=== PATIENT | female | born 1950 | race African-American/Black ===

== ENCOUNTER 2022-11-24 01:30 | Inpatient (IN) | payer OTHER, MEDICAID ==
[~2022-11-24] VITALS: Ht 160 cm; Wt 70.8 kg
[2022-11-24] MEDS ORDERED: MORPHINE SULFATE INJ 2 MG/ml SYRG IV PRN ×2 (02:15)
[2022-11-24] MEDS ORDERED: VANCOMYCIN PER PHARMACY 0 MG IV SCH (02:15)
[2022-11-24] MEDS ORDERED: hydrALAZINE HCL 10 MG TAB PO PRN (02:15)
[2022-11-24] MEDS ORDERED: NITROGLYCERIN 0.4 MG SL TAB SL PRN (02:15)
[2022-11-24] MEDS ORDERED: ACETAMINOPHEN 325 MG TAB PO PRN (02:15)
[2022-11-24] MEDS ORDERED: ONDANSETRON HCL 4 MG/2 ML VIAL IV PRN (02:15)
[2022-11-24] MEDS ORDERED: VANCOMYCIN 1GM/250ML 250 ML IV ONE (04:00)
[2022-11-24 05:00] VITALS: BP 176/50
[2022-11-24] MEDS: HYDROcodone-ACET 5/325MG TAB PO PRN ×2 (07:07→20:16)
[2022-11-24] MEDS: PIPERACILLIN-TAZOB 3.375GM 100 ML IV SCH ×3 (07:52→22:02)
[2022-11-24 08:00] VITALS: BP 136/63
[2022-11-24 08:36] LABS: Basophils # (auto) 0.1 10 ^3/uL (0-0.2); Basophils % (auto) 0.5 % (0.0-2.0); Eosinophils # (auto) 0.3 10 ^3/uL (0-0.8); Eosinophils % (auto) 2.8 % (0.0-7.0); Hemoglobin 12.5 g/dL (12.2-16.2); Lymphocytes # (auto) 2.7 10 ^3/uL (0.4-5.4); Mean Corpuscular Hemoglobin 28.8 pg (28.0-32.0); Mean Corpuscular Hgb Conc. 32.9 g/dL (32.0-36.0); Mean Corpuscular Volume 87.5 fL (80.0-100.0); Monocytes # (auto) 0.7 10 ^3/uL (0-1.3); Monocytes % (auto) 6.9 % (0.0-12.0); Neutrophils # (auto) 6.5 10 ^3/uL (1.6-8.6); Neutrophils % (auto) 63.8 % (37.0-80.0); Nucleated Red Blood Cells % 0.2 %; Red Blood Cells 4.34 10^6/uL (4.0-5.20); Red Cell Distribution Width 15.1 % (11.8-14.3); White Blood Cell 10.3 10^3/uL (4.4-10.8)
[2022-11-24 09:00] VITALS: BP 136/63
[2022-11-24 09:02] LABS: Albumin 3.1 g/dL (3.4-5.0); Calcium 8.8 mg/dL (8.5-10.1); Potassium 3.7 mmol/L (3.5-5.1)
[2022-11-24 09:05] LABS: BUN/Creatinine Ratio 10.9 (10.0-20.0); Bilirubin, Total 0.5 mg/dL (0.2-1.0); Total Protein 7.3 g/dL (6.4-8.2)
[2022-11-24] MEDS: D5W/SOD CHLO 0.9% 1,000 ML IV SCH (11:01)
[2022-11-24] MEDS: VANCOMYCIN 1GM/250ML 250 ML IV SCH (11:10)
[2022-11-24 11:24] LABS: INR 1.12 (0.9-1.15); Partial Thromboplastin Time 29.6 SEC (24.5-34.5)
[2022-11-24] MEDS ORDERED: LIDOCAINE 2%HCL (LOCAL ANESTH.) INJ 10ml MDV ONE (12:10)
[2022-11-24] MEDS ORDERED: METO-158 PO (12:28)
[2022-11-24] MEDS ORDERED: LISI40TA16 PO (12:28)
[2022-11-24] MEDS ORDERED: LOR2I IV (12:28)
[2022-11-24] MEDS ORDERED: AMLO1TAB22 PO (12:28)
[2022-11-24 12:29] VITALS: BP 168/78
[2022-11-24] MEDS ORDERED: LORazepam 2MG/ML-1ML VIAL IV PRN (12:30)
[2022-11-24] MEDS ORDERED: CLOP75TA28 PO (12:36)
[2022-11-24] MEDS ORDERED: LEVO112T2 PO (12:37)
[2022-11-24] MEDS ORDERED: LEV100T PO (12:37)
[2022-11-24] MEDS ORDERED: amLODIPine BESYLATE 5 MG TAB PO ONE (12:45)
[2022-11-24] MEDS ORDERED: LISINOPRIL 20 MG TAB PO ONE (12:45)
[2022-11-24] MEDS ORDERED: METOPROLOL SUCCINATE XL 50 MG TAB PO ONE (12:45)
[2022-11-24 17:02] VITALS: BP 127/74
[2022-11-24 22:00] VITALS: BP 139/53
[2022-11-25] MEDS: D5W/SOD CHLO 0.9% 1,000 ML IV SCH ×2 (00:54→13:25)
[2022-11-25 05:00] VITALS: BP 146/75
[2022-11-25] MEDS: VANCOMYCIN 1GM/250ML 250 ML IV SCH (05:33)
[2022-11-25] MEDS: PIPERACILLIN-TAZOB 3.375GM 100 ML IV SCH (07:28)
[2022-11-25 09:08] VITALS: BP 143/50
[2022-11-25] MEDS ORDERED: METOPROLOL TARTRATE 50 MG TAB PO SCH (10:00)
[2022-11-25] MEDS ORDERED: amLODIPine BESYLATE 5 MG TAB PO SCH (10:00)
[2022-11-25] MEDS ORDERED: LISINOPRIL 20 MG TAB PO SCH (10:00)
[2022-11-25] MEDS ORDERED: AMOXICILLIN/CLAVUL 875 MG TAB PO SCH (11:45)
[2022-11-25] MEDS ORDERED: AMOX500T86 PO (12:02)
[2022-11-25 13:20] VITALS: BP 143/50
== END 2022-11-25 14:53 | disposition home or self-care (01) | DRG 603 ==
LOC: UNDOADMIN 01:30 → TELE 01:30 → TELE-WESTW 03:20
PROVIDERS: ADMIT Nurse Practitioner Family; ATTEND Nurse Practitioner Family
DX: L03.311 Cellulitis of abdominal wall (principal); L02.211 Cutaneous abscess of abdominal wall; D72.829 Elevated white blood cell count, unspecified; E03.9 Hypothyroidism, unspecified; I10 Essential (primary) hypertension; W54.0XXA Bitten by dog, initial encounter; Y93.89 Activity, other specified; Y92.89 Other specified places as the place of occurrence of the external cause; Y99.8 Other external cause status
CPT/HCPCS: 36415; 74150; 76700; 80053; 80202; 85025; 85610; 85730; 87205; G0378; J2001; J2543

== ENCOUNTER 2023-05-06 14:24 | Emergency (ER) | payer OTHER, MEDICAID ==
[~2023-05-06] VITALS: Ht 160 cm; Wt 64.4 kg
[~2023-05-06 14:24] MED LIST: AMLO1TAB22 PO; AMOX500T86 PO; CLOP75TA28 PO; LEV100T PO; LEVO112T2 PO; LISI40TA16 PO; METO-158 PO
[2023-05-06 15:51] LABS: Urine Bacteria NONE SEEN /hpf (None Seen); Urine Blood Negative /uL (Negative); Urine Clarity Clear (Clear); Urine Color Yellow (Yellow); Urine Protein, UAD Negative (Negative); Urine Specific Gravity 1.015 (1.001-1.035); Urine Urobilinogen Normal (Negative); Urine WBC 16 /hpf (0 - 5); Urine pH 6.5 (5.0-8.0)
[2023-05-06] MEDS ORDERED: cefTRIAXone SOD 1,000 MG VL ONE (16:23)
[2023-05-06] MEDS ORDERED: cefTRIAXone SOD 1,000 MG VL IM ONE (16:30)
[2023-05-06 16:34] LABS: Vaginal Trichomonas Present
[2023-05-06 16:35] LABS: Vaginal Bacteria Many; Vaginal Clue Cells Few; Vaginal Epithelial Cells Many
[2023-05-06] MEDS ORDERED: METR-344 PO (16:42)
[2023-05-06] MEDS ORDERED: DOXY-447 PO (16:42)
[2023-05-06 16:47] VITALS: BP 138/63; PULSE 80; RESP 12; O2SAT 99
== END 2023-05-06 16:48 | disposition home or self-care (01) ==
LOC: ER 14:24
DX: A59.01 Trichomonal vulvovaginitis (principal); N39.0 Urinary tract infection, site not specified; Z20.2 Contact with and (suspected) exposure to infections with a predominantly sexual mode of transmission
CPT/HCPCS: 81001; 87210; 96372; 99284; J0696

== ENCOUNTER 2023-07-09 10:20 | Emergency (ER) | payer OTHER, MEDICAID ==
[~2023-07-09] VITALS: Ht 160 cm; Wt 64.0 kg
[~2023-07-09 10:20] MED LIST changes: +DOXY-447 PO; +METR-344 PO
[2023-07-09 11:22] LABS: Urine Bacteria FEW /hpf (None Seen); Urine Blood Negative /uL (Negative); Urine Clarity HAZY (Clear); Urine Color Yellow (Yellow); Urine Protein, UAD TRACE (Negative); Urine Specific Gravity 1.016 (1.001-1.035); Urine Urobilinogen Normal (Negative); Urine WBC 62 /hpf (0 - 5)
[2023-07-09 11:30] VITALS: BP 171/70; PULSE 91; RESP 16; TEMP 98.1; O2SAT 99
[2023-07-09] MEDS: cefTRIAXone SOD 1,000 MG VL IM ONE (11:46)
== END 2023-07-09 12:03 | disposition home or self-care (01) ==
LOC: ER 10:20
DX: N76.0 Acute vaginitis (principal); N39.0 Urinary tract infection, site not specified; I10 Essential (primary) hypertension
CPT/HCPCS: 81001; 96372; 99284; J0696

== ENCOUNTER 2023-09-10 08:19 | Emergency (ER) | payer OTHER, MEDICAID ==
[~2023-09-10] VITALS: Ht 160 cm; Wt 63.8 kg
[2023-09-10 08:46] VITALS: BP 175/74; TEMP 99
[2023-09-10 08:50] VITALS: PULSE 87; RESP 16; O2SAT 97
[2023-09-10 09:04] LABS: Urine Bacteria FEW /hpf (None Seen); Urine Blood TRACE /uL (Negative); Urine Clarity Clear (Clear); Urine Color Light-Yellow (Yellow); Urine Protein, UAD Negative (Negative); Urine Specific Gravity 1.014 (1.001-1.035); Urine Urobilinogen Normal (Negative); Urine WBC 9 /hpf (0 - 5); Urine pH 5.5 (5.0-9.0)
[2023-09-10 09:05] LABS: Vaginal Bacteria Many; Vaginal Clue Cells None Seen; Vaginal Epithelial Cells Moderate; Vaginal Trichomonas Present
[2023-09-10] MEDS ORDERED: METR-344 PO (09:17)
[2023-09-10] MEDS: cefTRIAXone SOD 1,000 MG VL IM ONE (09:21)
[2023-09-12 06:06] LABS: Chlamydia Trachomatis, NAA Negative (Negative); Neisseria gonorrhoeae, NAA Negative (Negative)
== END 2023-09-10 09:30 | disposition home or self-care (01) ==
LOC: ER 08:19
DX: A59.01 Trichomonal vulvovaginitis (principal); N39.0 Urinary tract infection, site not specified; A64 Unspecified sexually transmitted disease; I10 Essential (primary) hypertension
CPT/HCPCS: 81001; 87210; 87491; 87591; 96372; 99283; J0696

== ENCOUNTER 2023-10-08 07:44 | Emergency (ER) | payer OTHER, MEDICAID ==
[~2023-10-08] VITALS: Ht 160 cm; Wt 63.3 kg
[2023-10-08 08:11] LABS: Urine Bacteria None Seen /hpf (None Seen)
[2023-10-08 08:17] VITALS: BP 195/88; PULSE 93; RESP 16; TEMP 97.9; O2SAT 97
[2023-10-08 08:22] LABS: Urine Blood Negative /uL (Negative); Urine Clarity Clear (Clear); Urine Color Colorless (Yellow); Urine Protein, UAD Negative (Negative); Urine Specific Gravity 1.007 (1.001-1.035); Urine Urobilinogen Normal (Negative); Urine WBC <1 /hpf (0 - 5); Urine pH 6.5 (5.0-9.0)
[2023-10-08] MEDS ORDERED: PHEN-922 PO (08:49)
[2023-10-10] MEDS ORDERED: [UNRECOGNIZED DRUG - CODE] PO (07:11)
== END 2023-10-08 09:00 | disposition home or self-care (01) ==
LOC: ER 07:44
DX: N76.0 Acute vaginitis (principal); N39.0 Urinary tract infection, site not specified; I10 Essential (primary) hypertension
CPT/HCPCS: 81001

== ENCOUNTER 2023-11-23 13:45 | Emergency (ER) | payer OTHER, MEDICAID ==
[~2023-11-23] VITALS: Ht 160 cm; Wt 63.3 kg
[~2023-11-23 13:45] MED LIST changes: +PHEN-922 PO; +[UNRECOGNIZED DRUG - CODE] PO
[2023-11-23] MEDS ORDERED: FLUC150T38 PO (18:36)
[2023-11-23 19:40] LABS: Urine Bacteria FEW /hpf (None Seen); Urine Blood Negative /uL (Negative); Urine Clarity Clear (Clear); Urine Color Light-Yellow (Yellow); Urine Protein, UAD Negative (Negative); Urine Specific Gravity 1.007 (1.001-1.035); Urine Urobilinogen Normal (Negative); Urine WBC 7 /hpf (0 - 5)
[2023-11-23 19:50] VITALS: BP 122/68; PULSE 74; RESP 16; TEMP 97.9; O2SAT 99
== END 2023-11-23 20:01 | disposition home or self-care (01) ==
LOC: ER 13:45
DX: B37.31 Acute candidiasis of vulva and vagina (principal); I10 Essential (primary) hypertension; Z79.899 Other long term (current) drug therapy
CPT/HCPCS: 81001

== ENCOUNTER 2025-03-12 12:05 | Inpatient (IN) | payer MEDICAID, OTHER ==
[~2025-03-12] VITALS: Ht 152.4 cm; Wt 71.1 kg
[~2025-03-12 12:05] MED LIST changes: -DOXY-447 PO; +DOXY1CAP58 PO; +FLUC150T38 PO; -LEV100T PO; +LEVO-849 PO
--- NOTE | 2025-03-12 13:13 | ED.PDOC ---
Musculoskeletal HPI Comments 74 year old female presents to the ED with a chief complaint of RT foot swelling onset 4 days. Patient states she noticed swelling of RT foot for the past 4 days. There is wound to RT 5th toe, RT great toe with gangrene. Patient states she noticed color change on Rt great toe 4 days ago, was seen at a different ED, was recommended amputation, left AMA. About a month ago, patient states she had biopsy done on RT toe. Denies fever, chills, nausea, vomiting, diarrhea, headache, dizziness, numbness/tingling, chest pain, shortness of breath. No other symptoms or modifying factors present at this time. Chief Complaint: Lower Extremity Time Seen by MD: 13:05 Primary Care Provider: NONE Reviewed Notes: Medications, Allergies Allergies: Coded Allergies: NO KNOWN ALLERGIES (Unverified , 11/24/22) Home Meds Active Scripts Fluconazole (Diflucan) 150 Mg Tab, 1 TAB PO DAILY, #2 TAB 1 Refill Prov:BERRY CAMPA SHEEP STICKER 11/23/23 Metronidazole (Metronidazole) 375 Mg Cap, 375 MG PO BID for 7 Days, #14 CAP Prov:AZAR CARDOZO SHEEP STICKER 10/10/23 Phenazopyridine HCl (Phenazopyridine Hydrochlo) 200 Mg Tab, 200 MG PO TID, #6 TAB Prov:RICHY AREVALO 10/08/23 Metronidazole (Flagyl) 500 Mg Tab, 1 TAB PO BID, #14 TAB Prov:RICHY AREVALO 10/08/23 Metronidazole (Flagyl) 500 Mg Tab, 1 TAB PO TID, #24 TAB Prov:RICHY AREVALO 09/10/23 Doxycycline (Monohydrate) (Doxycycline) 100 Mg Cap, 100 MG PO BID, #20 CAP Prov:RICHY AREVALO 09/10/23 Metronidazole (Flagyl) 500 Mg Tab, 1 TAB PO BID, #14 TAB Prov:RICHY AREVALO 07/09/23 Doxycycline (Monohydrate) (Doxycycline) 100 Mg Cap, 100 MG PO BID, #20 CAP Prov:RICHY AREVALO 07/09/23 Amoxicillin & Pot Clavulanate (Augmentin) 500 Mg Tab, 1 TAB PO BID, #14 TAB Prov:ROCKY LUCIA MD 11/25/22 Reported Medications Levothyroxine Sodium (Synthroid) 112 Mcg Tab, 1 TAB PO AC, TAB 5 Refills 11/24/22 Levothyroxine Sodium (SYNTHROID TABLET) 100 Mcg Tb, 1 TAB PO DAILY, #30 TAB 5 Refills 11/24/22 Clopidogrel Bisulfate (Plavix) 75 Mg Tab, 1 TAB PO DAILY, % 11/24/22 Metoprolol Tartrate (Metoprolol Tartrate) 50 Mg Tab, 50 MG PO DAILY, MG 11/24/22 Lisinopril (Lisinopril) 40 Mg Tab, 40 MG PO DAILY, MG 11/24/22 Amlodipine Besylate (Amlodipine Besylate) 5 Mg Tab, 10 MG PO DAILY for 30 Days, MG 11/24/22 Information Source: Patient Mode of Arrival: Ambulatory Location: Right Extremity Location: Foot, Great Toe Timing: Days Prehospital treatment: None Severity: Moderate Bear Weight: Limited Pain: Moderate Mechanism: Spontaneous Circumstances: Spontaneous Onset of Symptoms: Spontaneous Symptoms: Pain DVT Risk Factors: NONE Last Tetanus: UTD Past Medical History PAST MEDICAL HISTORY: HTN Surgical History: Denies all surgeries RUNNER WORKER History: Denies all RUNNER WORKER Hx Family History Family History: Reviewed,noncontributory to illness Social History Smoker: Non-Smoker Alcohol: Denies ETOH Use Drugs: Denies Drug Use Lives In: Home Constitutional: denies: chills, diaphoresis, fatigue, fever, malaise, sweats, weakness, others EENTM: denies: blurred vision, double vision, ear bleeding, ear discharge, ear drainage, ear pain, ear ringing, eye pain, eye redness, hearing loss, mouth pain, mouth swelling, nasal discharge, nose bleeding, nose congestion, nose pain, photophobia, tearing, throat pain, throat swelling, voice changes, others Respiratory: denies: cough, hemoptysis, orthopnea, SOB at rest, shortness of breath, SOB with excertion, stridor, wheezing, others Cardiovascular: denies: chest pain, dizzy spells, diaphoresis, Dyspnea on ex ertion, edema, irregular heart beat, left arm pain, lightheadedness, palpitations, PND, syncope, others Gastrointestinal: denies: abdomen distended, abdominal pain, blood streaked bowels, constipated, diarrhea, dysphagia, difficulty swallowing, hematemesis, melena, nausea, poor appetite, poor fluid intake, rectal bleeding, rectal pain, vomiting, others Genitourinary: denies: abnormal vagina bleeding, burning, dyspareunia, dysuria, flank pain, frequency, hematuria, incontinence, pain, , vagina discharge, urgency, others Neurological: denies: dizziness, fainting, headache, left sided numbness, left sided weakness, numbness, paresthesia, pre-existing deficit, right sided numbness, right sided weakness, seizure, speech problems, tingling, tremors, weakness, others Musculoskeletal: reports: others (Rt foot pain, RT great toe discoloration); denies: back pain, gout, joint pain, joint swelling, muscle pain, muscle stiffness, neck pain Integumetry: reports: change in color (RT great toe); denies: bruises, change in hair/nails, dryness, laceration, lesions, lumps, rash, wounds, others Allergic/Immunocompromised: denies: Difficulty Healing, Frequent Infections, Hives, Itching, others Hematologic/Lymphatic: denies: anemia, blood clots, easy bleeding, easy bruising, swollen glands, others Endocrine: denies: excessive hunger, excessive sweating, excessive thirst, excessive urination, flushing, intolerance to cold, intolerance to heat, unexplained weight gain, unexplained weight loss, others Psychiatric: denies: anxiety, bipolar disorder, depression, hopeless, panic disorder, schizophrenia, sleepless, suicidal, others All Other Systems: Reviewed and Negative Physical Exam General Appearance: Moderate Distress, Normal HEENT: Normal ENT Inspection, Pharynx Normal, TMs Normal Neck: Full Range of Motion, Non-Tender, Normal, Normal Inspection Respiratory: Chest Non-Tender, Lungs Clear, No Accessory Muscle Use, No Respir atory Distress, Normal Breath Sounds Cardiovascular: No Edema, No JVD, No Murmur, No Gallop, Normal Peripheral Pulses, Regular Rate/Rhythm Breast Exam: Deferred Gastrointestinal: No Organomegaly, Non Tender, No Pulsatile Mass, Normal Bowel Sounds, Soft Genitalia: Deferred Pelvic: Deferred Rectal: Deferred Extremities: Other (Right great toe necrotic) Musculoskeletal : Apperance: Normal Neurologic: Alert, home aid II-XII nml as Tested, No Motor Deficits, Normal Affect, Normal Mood, No Sensory Deficits Cerebellar Function: NOT DONE Reflexes: NOT DONE Skin: Dry, Normal Color, Warm, Wounds (Right great toe) Peripheral Pulses: 3+ Radial (R), 3+ Radial (L) Lymphatic: No Adenopathy Was a procedure done? Was a procedure done?: No Differential Diagnosis EXT Differential Diagnosis: Fracture, Sprain, Strain X-Ray, Labs, Meds, VS Vital Signs Date Time Temp Pulse Resp B/P (MAP) Pulse Ox O2 Delivery O2 Flow Rate FiO2 03/12/25 12:06 97.8 89 18 184/79 98 97.8 Lab Test 03/12/25 13:40 Range/Units White Blood Count 13.5 H 4.4-10.8 10^3/uL Red Blood Count 3.61 L 4.0-5.20 10^6/uL Hemoglobin 10.5 L 12.2-16.2 g/dL Hematocrit 31.9 L 36.0-46.0 % Mean Corpuscular Volume 88.5 80.0-100.0 fL Mean Corpuscular Hemoglobin 29.0 28.0-32.0 pg Mean Corpuscular Hemoglobin Concent 32.7 32.0-36.0 g/dL Red Cell Distribution Width 14.7 H 11.8-14.3 % Platelet Count 355 140-450 10^3/uL Mean Platelet Volume 8.2 6.9-10.8 fL Neutrophils (%) (Auto) 68.6 37.0-80.0 % Lymphocytes (%) (Auto) 22.4 10.0-50.0 % Monocytes (%) (Auto) 6.5 0.0-12.0 % Eosinophils (%) (Auto) 1.2 0.0-7.0 % Basophils (%) (Auto) 1.3 0.0-2.0 % Neutrophils # (Auto) 9.2 H 1.6-8.6 10 ^3/uL Lymphocytes # (Auto) 3.0 0.4-5.4 10 ^3/uL Monocytes # (Auto) 0.9 0-1.3 10 ^3/uL Eosinophils # (Auto) 0.2 0-0.8 10 ^3/uL Basophils # (Auto) 0.2 0-0.2 10 ^3/uL Nucleated Red Blood Cells 0.2 % Sodium Level 143 136-145 mmol/L Potassium Level 2.9 L 3.5-5.1 mmol/L Chloride Level 108 H 98-107 mmol/L Carbon Dioxide Level 25 20-31 mmol/L Anion Gap 10 5-15 Blood Urea Nitrogen 12 9-23 mg/dL Creatinine 0.70 0.550-1.02 mg/dL Glomerular Filtration Rate Calc 92 >90 mL/min BUN/Creatinine Ratio 17.1 10.0-20.0 Serum Glucose 101 74-106 mg/dL Lactic Acid Level 1.9 0.4-2.0 mmol/L Calcium Level 8.8 8.7-10.4 mg/dL Current Medications Medications (Trade) Dose Ordered Sig/Cirilo Route Start Time Stop Time Status Last Admin Piperacillin Sod/ Tazobactam Sod 100 ml @ 100 mls/hr ONCE ONCE IV 03/12/25 13:15 03/12/25 14:14 DC 03/12/25 16:34 Sodium Chloride 1,000 ml @ 1,000 mls/hr Q1H ONCE IV 03/12/25 13:15 03/12/25 14:14 DC 03/12/25 13:15 [place] [id number] Ph: [phone] DIAGNOSTIC IMAGING Diagnostic Imaging Report : [id number] Signed PATIENT: JOSE PEREIRA ACCT: [id number] UNIT: [id number] : 1950 LOC: ER ROOM / BED: / AGE / SEX: 74 / F ADM STATUS: REG ER SERVICE 1305 ORDERING PHYSICIAN: GRETA RICHARDSON MD PROCEDURE(s): RFTCT - CT R FOOT WO CONTRAST REASON: osteo ORDER NUMBER(s): [id number], ACCESSION NUMBER(s): [id number] EXAMINATION: CT CT R FOOT WO CONTRAST INDICATION: Pain and swelling. Assess for osteomyelitis. COMPARISON: None TECHNIQUE: CT of the right foot was performed without contrast. Volume transverse images were obtained reconstructed in multiple planes using bone and soft tissue algorithms. CONTRAST: None. Radiation dose: CTDIvol: 7.75 mGy; DLP 180.51 FINDINGS: Generalized soft tissue edema. No obvious focal fluid collections. No erosive changes. No intraosseous or soft tissue gas. Severe degenerative changes of the 1st MTP joint with complete joint space loss and osteophytes. More mild degenerative changes throughout the midfoot. IMPRESSION: No CT evidence for acute osteomyelitis. ATED BY: MULU MANNING MD DICTATED DATE/TIME: 03/12/25 1358 SIGNED BY: MULU MANNING MD SIGNED DATE/TIME: 03/12/25 1358 CC: Patient alert. Vitals stable. Came in because of necrotic right great toe. Answering questions. Ambulating. CT scan of the foot does not show any acute process possible early osteomyelitis. Spoke with choice physician. Explained to the patient. Continue monitoring. Time of 1ST Reevaluation: 13:35 Reevaluation 1ST: Unchanged Patient Education/Counseling: Diagnosis, Treatment, Prognosis Family Education/Counseling: No Family Present Sepsis Sepsis Reasesment Focused Exam Orders: Laboratory Tests 03/12/25 13:40: Lactic Acid Level 1.9 Departure 1 Departure Time of Disposition: 16:33 Impression: Primary Impression: Necrosis of toe Additional Impressions: Sepsis, unspecified organism Qualified Codes: A41.9 - Sepsis, unspecified organism Hypokalemia Disposition: ADMITTED INPATIENT Admit to: Med Surg Condition: Guarded Critical Care Note Critical Care Time?: Yes (90 min-critical care time only) Stability Stability form required: No Heart Score Heart Score: Heart Score Response (Comments) Value History N/A 0 EKG N/A 0 Age N/A 0 Risk Factors N/A 0 Troponin N/A 0 Total 0 I personally scribed for GRETA RICHARDSON MD ([email or web address]) on 03/12/25 at 13:13. Electronically submitted by Flori Hunt ([email or web address]). I personally scribed for GRETA RICHARDSON MD ([email or web address]) on 03/12/25 at 14:15. Electronically submitted by Flori Hunt ([email or web address]). GRETA RICHARDSON MD Mar 12, 2025 13:13
[2025-03-12] MEDS: SODIUM CHLORIDE 0.9% 1,000 ML IV ONE (13:15)
--- NOTE | 2025-03-12 14:00 | DVH ---
EXAMINATION: CT CT R FOOT WO CONTRAST INDICATION: Pain and swelling. Assess for osteomyelitis. COMPARISON: None TECHNIQUE: CT of the right foot was performed without contrast. Volume transverse images were obtaine d reconstructed in multiple planes using bone and soft tissue algorithms. CONTRAST: None. Radiation dose: CTDIvol: 7.75 mGy; DLP 180.51 FINDINGS: Generalized soft tissue edema. No obvious focal fluid collections. No erosive changes. No intraosseous or soft tissue gas. Severe degenerative changes of the 1st MTP joint with complete joint space loss and osteophytes. More mild degenerative changes throughout the midfoot. IMPRESSION: No CT evidence for acute osteomyelitis.
[2025-03-12 14:06] LABS: Sodium 143 mmol/L (136-145)
[2025-03-12 14:07] LABS: Anion Gap 10 (5-15); Carbon Dioxide 25 mmol/L (20-31); Chloride 108 mmol/L (98-107); Potassium 2.9 mmol/L (3.5-5.1)
[2025-03-12 14:08] LABS: Calcium 8.8 mg/dL (8.7-10.4)
[2025-03-12 14:13] LABS: BUN/Creatinine Ratio 17.1 (10.0-20.0); Blood Urea Nitrogen 12 mg/dL (9-23); Glucose 101 mg/dL (74-106)
[2025-03-12 15:29] LABS: Hematocrit 31.9 % (36.0-46.0); Hemoglobin 10.5 g/dL (12.2-16.2); Mean Corpuscular Hemoglobin 29.0 pg (28.0-32.0); Mean Corpuscular Volume 88.5 fL (80.0-100.0); Nucleated Red Blood Cells % 0.2 %
[2025-03-12] MEDS: PIPERACILLIN-TAZOB 3.375GM 100 ML IV ONE ×2 (16:34→20:47)
[2025-03-12] MEDS ORDERED: ONDANSETRON HCL 4 MG/2 ML VIAL IV PRN (16:45)
[2025-03-12] MEDS ORDERED: NITROGLYCERIN 0.4 MG SL TAB SL PRN (16:45)
[2025-03-12] MEDS ORDERED: DOCUSATE SOD 100 MG CAP PO PRN (16:45)
[2025-03-12] MEDS ORDERED: MORPHINE SULFATE INJ 2 MG/ml SYRG IV PRN (16:45)
[2025-03-12 18:58] VITALS: RESP 23; O2SAT 97
[2025-03-12] MEDS: SODIUM CHLORIDE 0.9% 1,000 ML IV SCH (19:03)
[2025-03-12] MEDS: HYDROcodone-ACET 5/325MG TAB PO PRN (19:08)
[2025-03-12] MEDS: CLINDAMYCIN 300MG IV 50 ML IV ONE (19:10)
--- NOTE | 2025-03-12 19:25 | DVH ---
BILATERAL LOWER EXTREMITY ARTERIAL DUPLEX ULTRASOUND STUDY: REASON FOR EXAM: Peripheral vascular disease. TECHNIQUE: The full lengths of the arterial segments were evaluated with color-flow Doppler ultrasoun d. Suspected abnormalities were evaluated with gomez scale ultrasound. Charge Account Authorizer spectral Doppler waveforms, with velocity measurements were obtained. Spectral waveforms with velocity measurements w ere obtained 2 to 4 cm central to any areas of significant stenosis. Common femoral, superficial femo ral, popliteal, posterior tibial, anterior tibial, and dorsal pedal arteries were evaluated. FINDINGS: Right: There is severe atherosclerotic plaque throughout the right lower extremity. The common femora l artery waveform is high velocity monophasic with a brisk upstroke suggesting upstream disease in th e pelvis. No flow is identified in the proximal portion of the superficial femoral artery. The middle and distal portions of the SFA demonstrates moderately low velocity monophasic flow. The popliteal a rtery demonstrates moderately low velocity monophasic flow. There is low velocity monophasic flow in the posterior tibial and anterior tibial arteries. There is increased velocity in the dorsal pedal ar hamlet consistent with greater than 50% luminal narrowing. Left: There is severe atherosclerotic plaque throughout the left lower extremity. The common femoral artery waveform is high velocity monophasic with a brisk upstroke suggesting upstream disease in the pelvis. There is relatively high velocity monophasic flow in the SFA and popliteal arteries with mitch ewhat sluggish upstroke. There is relatively high velocity monophasic flow in the posterior tibial, a nterior tibial, and dorsal pedal arteries. IMPRESSION: Severe peripheral arterial disease. Occlusion of the proximal portion of the right SFA with reconstitution in the mid thigh. There appears to be inline monophasic flow throughout the left lower extremity. Recommend further evaluation with CT angiography of bilateral lower extremities.
[2025-03-12 19:30] VITALS: RESP 24; O2SAT 98
[2025-03-12] MEDS: POTASSIUM EFFERVESENT TAB 25 MEQ PO ONE (19:59)
[2025-03-12 21:44] VITALS: BP 168/85; PULSE 69; RESP 16; TEMP 98; O2SAT 98
[2025-03-12 22:09] VITALS: PULSE 70; RESP 16; O2SAT 98
[2025-03-12] MEDS: ASCORBIC ACID 500 MG TAB PO SCH (22:31)
[2025-03-12] MEDS: ACETAMINOPHEN 325 MG TAB PO PRN (22:37)
[2025-03-12] MEDS ORDERED: ERGO1CAP23 PO (22:37)
[2025-03-12] MEDS ORDERED: MONT-8 PO (22:38)
[2025-03-12] MEDS ORDERED: MONT5CHW12 PO (22:38)
[2025-03-12] MEDS ORDERED: CETI10TA2 PO (22:39)
[2025-03-12] MEDS ORDERED: DOCU-94 PO (22:39)
[2025-03-13] VITALS (10 sets, daily range): BP systolic 147–190; BP diastolic 55–91; PULSE 73–96; RESP 16–18; TEMP 97.8–98.7; O2SAT 94–100
--- NOTE | 2025-03-13 00:10 | DVHHP2 ---
HARSHIL CISNEROS MANAGER OF OPERATIONS 03/13/25 0010: History of Present Illness Reason for Visit: Right great toe necrosis History of Present Illness 74-year-old female with past medical history of hypertension, hypothyroidism, PID presents with complaints of right foot swelling x4 days. Patient has also had blackening of the right great toe and right 5th toe. Also endorses the recent change to the right great toe within the last 4 days. During the emergency department evaluation W13.5, H&H 10.5/31.9, PLT 355, Na 143, K2.9, BUN 12, creatinine 0.70, GFR 92. CT of the right foot impression reads generalized soft tissue edema with no obvious focal fluid collections. No erosive changes. No interosseous soft tissue gas. Severe degenerative changes of the 1st MTP joint with complete joint space loss and osteophytes with more mild degenerative changes throughout the midfoot. No CT evidence for acute osteomyelitis. At this time patient denies fevers, chills, shortness of breath, dizziness, chest pain, palpitations, nausea, vomiting, Cardiovascular: HTN Endocrine: Hypothyroidism Smoke: No ALCOHOL: none Drugs: None Lives: with Family Review of Systems Constitutional: No: Fever, Chills, Sweats, Weakness, Malaise, Other Eyes: No: Pain, Vision change, Conjunctivae inflammation, Eyelid inflammation, Other, Redness ENT: No: Ear pain, Ear discharge, Nose pain, Nose discharge, Nose congestion, Mouth pain, Mouth swelling, Throat pain, Throat swelling, Other Respiratory: No: Cough, Dry, Shortness of breath, SOB with excertion, Wheezing, Hemoptysis, Pleuritic Pain, Sputum, Wheezing, Other Cardiovascular: No: Chest Pain, Palpitations, Orthopnea, Paroxysmal Noc. Dyspnea, Edema, Lt Headedness, Other Gastrointestinal: No: Nausea, Vomiting, Abdominal Pain, Diarrhea, Constipation, Melena, Hematochezia, Other Genitourinary: No Dysuria, No Frequency, No Incontinence, No Hematuria, No Retention, No Other Musculoskeletal: leg pain, foot pain; No: other, neck pain, shoulder pain, arm pain, back pain, hand pain Skin: Other (Right great toe blackening with swelling) Allergies: Coded Allergies: NO KNOWN ALLERGIES (Unverified , 11/24/22) Medications Current Medications Medications Dose Ordered Sig/Cirilo Route Start Time Stop Time Status Last Admin Dose Admin Sodium Chloride 1,000 ml @ 120 mls/hr Q8H20M IV 03/12/25 16:45 03/12/25 19:03 120 MLS/HR Acetaminophen/ Hydrocodone Bitart 1 tab Q4HP PRN PO 03/12/25 16:45 03/12/25 23:15 1 TAB Ondansetron HCl 4 mg Q4HP PRN IV 03/12/25 16:45 Docusate Sodium 100 mg BIDPRN PRN PO 03/12/25 16:45 Enoxaparin Sodium 40 mg DAILY SC 03/13/25 10:00 Zinc Sulfate 220 mg DAILY PO 03/13/25 10:00 Ascorbic Acid 500 mg BID PO 03/12/25 22:00 03/12/25 22:31 500 MG Multivitamins 1 tab DAILY PO 03/13/25 10:00 Acetaminophen 650 mg Q6HP PRN PO 03/12/25 16:45 03/12/25 22:37 650 MG Nitroglycerin 0.4 mg Q5MINP PRN SL 03/12/25 16:45 Morphine Sulfate 2 mg Q30M PRN IV 03/12/25 16:45 Exam Vital Signs Vital Signs Date Time Temp Pulse Resp B/P (MAP) Pulse Ox O2 Delivery O2 Flow Rate FiO2 03/12/25 22:09 70 16 98 Room Air* 0 21 03/12/25 21:44 98.0 168/85 (112) 98.0 General Appearance: Alert, Oriented X3, Cooperative, No acute distress HEENT: Atraumatic, PERRLA, EOMI Respiratory: Clear to auscultation, Normal air movement Cardiovascular: Regular rate, Normal S1, Normal S2 Abdominal: Normal bowel sounds, Soft, No tenderness Extremities: No clubbing, Other (Edema to right midfoot, eschar right great toe and right 5th toe) Neuro: Normal gait, Normal speech, Strength at 5/5 X4 ext Psych/Mental Status: Mental status NL, Mood NL Labs/Xrays Labs Test 03/12/25 13:40 Range/Units White Blood Count 13.5 H 4.4-10.8 10^3/uL Red Blood Count 3.61 L 4.0-5.20 10^6/uL Hemoglobin 10.5 L 12.2-16.2 g/dL Hematocrit 31.9 L 36.0-46.0 % Mean Corpuscular Volume 88.5 80.0-100.0 fL Mean Corpuscular Hemoglobin 29.0 28.0-32.0 pg Mean Corpuscular Hemoglobin Concent 32.7 32.0-36.0 g/dL Red Cell Distribution Width 14.7 H 11.8-14.3 % Platelet Count 355 140-450 10^3/uL Mean Platelet Volume 8.2 6.9-10.8 fL Neutrophils (%) (Auto) 68.6 37.0-80.0 % Lymphocytes (%) (Auto) 22.4 10.0-50.0 % Monocytes (%) (Auto) 6.5 0.0-12.0 % Eosinophils (%) (Auto) 1.2 0.0-7.0 % Basophils (%) (Auto) 1.3 0.0-2.0 % Neutrophils # (Auto) 9.2 H 1.6-8.6 10 ^3/uL Lymphocytes # (Auto) 3.0 0.4-5.4 10 ^3/uL Monocytes # (Auto) 0.9 0-1.3 10 ^3/uL Eosinophils # (Auto) 0.2 0-0.8 10 ^3/uL Basophils # (Auto) 0.2 0-0.2 10 ^3/uL Nucleated Red Blood Cells 0.2 % Sodium Level 143 136-145 mmol/L Potassium Level 2.9 L 3.5-5.1 mmol/L Chloride Level 108 H 98-107 mmol/L Carbon Dioxide Level 25 20-31 mmol/L Anion Gap 10 5-15 Blood Urea Nitrogen 12 9-23 mg/dL Creatinine 0.70 0.550-1.02 mg/dL Glomerular Filtration Rate Calc 92 >90 mL/min BUN/Creatinine Ratio 17.1 10.0-20.0 Serum Glucose 101 74-106 mg/dL Lactic Acid Level 1.9 0.4-2.0 mmol/L Calcium Level 8.8 8.7-10.4 mg/dL SEPSIS Sepsis Screen Date sepsis recognized/suspect: Mar 12, 2025 Time Sepsis recognized/suspect: 1915 Recent Procedure: No On Antibiotic Therapy: Yes Respiratory Rate >20: Yes Heart Rate >90: No Temp<36 C (96.8 F) or >38.3 C: No SBP <90 or MAP <65 mmHG: No New Acute Mental Status Change: No Is the patient on CPAP, BIPAP,: No Physician Orders Admit (03/12/25 16:34) Code Status (03/12/25 16:34) 2 Gm Sodium Diet (03/12/25 Dinner) Sodium Chloride 0.9% (03/12/25 16:45) Hydrocodone-Acet 5/325mg Tab ([place] 5/32 (03/12/25 16:45) Ondansetron Hcl (Zofran) (03/12/25 16:45) Docusate Sodium Capsule (Colace Capsule) (03/12/25 16:45) Enoxaparin Sodium (Lovenox) (03/13/25 10:00) Zinc Sulfate (03/13/25 10:00) Ascorbic Acid Tablet (Vitamin C Tablet) (03/12/25 22:00) Multiple Vitamin Tablet (Mvi Tab) (03/13/25 10:00) Condition: Stable (03/12/25 16:34) Acetaminophen Tablet (Tylenol Tablet) (03/12/25 16:45) Nitroglycerin Sublingual (Ntrostat Subli (03/12/25 16:45) Morphine Sulfate Injection (03/12/25 16:45) Stat Ekg For Chest Pain (03/12/25 16:34) Notify Md Of Changes From Base (03/12/25 16:34) Professor Of Surgery For 24 Hours (03/12/25 16:34) Emergency Dysrhythmia Protocol (03/12/25 16:34) Rhythm Strips Once Every Shift (03/12/25 16:34) Oxygen By Nasal Cannula (03/12/25 16:34) Mri R Foot Wo Contrast (03/12/25 16:34) Consult Vascular/Endovascular (03/12/25 16:34) Bilat Low Ext Art Duplex (03/12/25 16:34) * Wound Consult (03/12/25 ) Vital Signs Date Time Temp Pulse Resp B/P (MAP) Pulse Ox O2 Delivery O2 Flow Rate FiO2 03/12/25 22:09 70 16 98 Room Air* 0 21 03/12/25 21:44 98.0 69 16 168/85 (112) 98 98.0 03/12/25 18:58 23 97 Room Air* 0 21 03/12/25 18:44 98.5 82 22 114/72 (86) 100 98.5 Laboratory Tests Test 03/12/25 13:40 Lactic Acid Level 1.9 mmol/L (0.4-2.0) White Blood Count 13.5 10^3/uL (4.4-10.8) H Medications Medications Dose Ordered Sig/Cirilo Route Start Time Stop Time Status Last Admin Dose Admin Acetaminophen 650 mg Q6HP PRN PO 03/12/25 16:45 03/12/25 22:37 650 MG Acetaminophen/ Hydrocodone Bitart 1 tab Q4HP PRN PO 03/12/25 16:45 03/12/25 23:15 1 TAB Ascorbic Acid 500 mg BID PO 03/12/25 22:00 03/12/25 22:31 500 MG Clindamycin Phosphate 50 ml @ 50 mls/hr ONCE ONCE IV 03/12/25 16:45 03/12/25 17:44 DC 03/12/25 19:10 50 MLS/HR Piperacillin Sod/ Tazobactam Sod 100 ml @ 100 mls/hr ONCE ONCE IV 03/12/25 13:15 03/12/25 14:14 DC 03/12/25 16:34 100 MLS/HR Piperacillin Sod/ Tazobactam Sod 100 ml @ 100 mls/hr ONCE ONCE IV 03/12/25 16:45 03/12/25 17:44 DC 03/12/25 20:47 100 MLS/HR Potassium Bicarbonate 50 meq ONCE ONCE PO 03/12/25 16:45 03/12/25 16:46 DC 03/12/25 19:59 50 MEQ Sodium Chloride 1,000 ml @ 120 mls/hr Q8H20M IV 03/12/25 16:45 03/12/25 19:03 120 MLS/HR Sodium Chloride 1,000 ml @ 1,000 mls/hr Q1H ONCE IV 03/12/25 13:15 03/12/25 14:14 DC 03/12/25 13:15 1,000 MLS/HR Assessment/Plan Assessment/Plan Necrosis of right great toe and right fifth toe Right foot cellulitis Severe PAD Hypertension Hypokalemia Plan Admit telemetry Vascular surgeon consult. MRI right foot. Bilateral lower extremity arterial Doppler. IV ABX, IVF Continue home medication. As needed antihypertensive. for optimal BP management. Monitor BMP. Correct electrolytes as needed. DVT ppx lovenox Plan discussed with: Patient Date of Service: Mar 13, 2025 Billing Provider: LEXI PHILLIPS MD Common Visit Codes: NOT BILLABLE LEXI PHILLIPS MD 03/13/25 1608: Review of Systems Allergies: Coded Allergies: NO KNOWN ALLERGIES (Unverified , 11/24/22) Additional Comments Additional Comments Additional Comments 74-year-old female with a known history of peripheral vascular disease, hypertension, hypothyroidism, dyslipidemia initially presented to the hospital with a right foot pain found to have 1. Right great toe blackening toe 2. Severe peripheral arterial disease bilateral lower extremity 3. Occlusion of the right superficial femoral, 50% stenosis of the right popliteal artery 4. Extensive atherosclerosis of with a bilateral lower extremity arteries 5. Hypertension 6. Dyslipidemia 7. Hypothyroidism -continue current management, follow up vascular surgery for endarterectomy. -2D echo, preop cardiac HARSHIL CISNEROS NP Mar 13, 2025 00:10 LEXI PHILLIPS MD Mar 13, 2025 16:08
[2025-03-13] MEDS ORDERED: MORPHINE SULFATE INJ 2 MG/ml SYRG IV PRN (00:15)
[2025-03-13] MEDS: hydrALAZINE HCL 20 MG/ML VL IV PRN (00:40)
[2025-03-13] MEDS: LEVOTHYROXINE SODIUM 100 MCG TAB PO SCH (05:51)
[2025-03-13 08:12] LABS: Hematocrit 32.5 % (36.0-46.0); Hemoglobin 10.9 g/dL (12.2-16.2); Mean Corpuscular Hemoglobin 29.4 pg (28.0-32.0); Mean Corpuscular Volume 87.9 fL (80.0-100.0); Nucleated Red Blood Cells % 0.0 %
[2025-03-13 08:29] LABS: Sodium 141 mmol/L (136-145)
[2025-03-13 08:31] LABS: Anion Gap 8 (5-15); Calcium 8.8 mg/dL (8.7-10.4); Carbon Dioxide 25 mmol/L (20-31)
[2025-03-13 08:36] LABS: BUN/Creatinine Ratio 12.9 (10.0-20.0); Blood Urea Nitrogen 8 mg/dL (9-23); Chloride 108 mmol/L (98-107); Glucose 99 mg/dL (74-106); Potassium 3.1 mmol/L (3.5-5.1)
[2025-03-13] MEDS: ZINC SULFATE 220mg CAP or TAB PO SCH (09:58)
[2025-03-13] MEDS: MULTIPLE VITAMIN TAB PO SCH (09:59)
[2025-03-13] MEDS: METOPROLOL TARTRATE 50 MG TAB PO SCH (09:59)
[2025-03-13] MEDS: ENOXAPARIN SOD 40 MG/0.4 ML SYRINGE SC SCH (10:00)
--- NOTE | 2025-03-13 11:53 | DVHCONRES ---
Date Seen: Mar 13, 2025 Resident Creating Document: VALERIA MENDOZA Jr., MD Referring Physician er Reason for Consultation pad History of Present Illness 74-year-old female with past medical history of hypertension, hypothyroidism, PID presents with complaints of right foot swelling x4 days. Patient has also had blackening of the right great toe and right 5th toe. Also endorses the recent change to the right great toe within the last 4 days. During the emergency department evaluation W13.5, H&H 10.5/31.9, PLT 355, Na 143, K2.9, BUN 12, creatinine 0.70, GFR 92. CT of the right foot impression reads generalized soft tissue edema with no obvious focal fluid collections. No erosive changes. No interosseous soft tissue gas. Severe degenerative changes of the 1st MTP kendrick nt with complete joint space loss and osteophytes with more mild degenerative changes throughout the midfoot. No CT evidence for acute osteomyelitis. At this time patient denies fevers, chills, shortness of breath, dizziness, chest pain, palpitations, nausea, vomiting, Patient has had multiple angiograms the most recent one was on the right lower extremity Youssef three weeks ago demonstrated right proximal SFA occlusion with reconstitution of the mid SFA. Was scheduled to have workup for probable endarterectomy. Patient was then seen by her hvac controls technician who trend her right 1st toe now which now has been come dry gangrene. Past Medical History hypertension, hypothyroidism, Pad Past Surgical History Angiogram Family History: Patient reports no known family medical history. Social History Smoker current Allergies: Coded Allergies: NO KNOWN ALLERGIES (Unverified , 11/24/22) Home Meds Active Scripts Fluconazole (Diflucan) 150 Mg Tab, 1 TAB PO DAILY, #2 TAB 1 Refill Prov:BERRY CAMPA CANDY WRAPPING MACHINE OPERATOR 11/23/23 Metronidazole (Metronidazole) 375 Mg Cap, 375 MG PO BID for 7 Days, #14 CAP Prov:AZAR CARDOZO CANDY WRAPPING MACHINE OPERATOR 10/10/23 Phenazopyridine HCl (Phenazopyridine Hydrochlo) 200 Mg Tab, 200 MG PO TID, #6 TAB Prov:RICHY AREVALO 10/08/23 Metronidazole (Flagyl) 500 Mg Tab, 1 TAB PO BID, #14 TAB Prov:RICHY AREVALO 10/08/23 Metronidazole (Flagyl) 500 Mg Tab, 1 TAB PO TID, #24 TAB Prov:IRINAARKillian HANSEN 09/10/23 Doxycycline (Monohydrate) (Doxycycline) 100 Mg Cap, 100 MG PO BID, #20 CAP Prov:IRINA,ARKillian HANSEN 09/10/23 Metronidazole (Flagyl) 500 Mg Tab, 1 TAB PO BID, #14 TAB Prov:IRINAARKillian HANSEN 07/09/23 Doxycycline (Monohydrate) (Doxycycline) 100 Mg Cap, 100 MG PO BID, #20 CAP Prov:IRINA,ARKillian PA 07/09/23 Amoxicillin & Pot Clavulanate (Augmentin) 500 Mg Tab, 1 TAB PO BID, #14 TAB Prov:ROCKY LUCIA MD 11/25/22 Reported Medications Cetirizine Hcl (Kls Aller-Clarita) 10 Mg Tab, 1 TAB PO DAILY, #30 TAB 3 Refills 03/12/25 Docusate Sodium (Colace) 100 Mg Cap, 1 CAP PO BID, #30 CAP 03/12/25 Montelukast Sodium (Singulair) 5 Mg Chw, 10 MG PO DAILY, TAB.CHEW 03/12/25 Montelukast Sodium (MONTELUKAST SODIUM) 10 Mg Tab, 1 TAB PO DAILY, #30 TAB 5 Refills 03/12/25 Ergocalciferol (VITAMIN D 03380 UNIT) 50,000 [place] Cp, 17589 UNIT PO QWEEKLY, CAP 03/12/25 Levothyroxine Sodium (SYNTHROID TABLET) 100 Mcg Tb, 1 TAB PO DAILY, #30 TAB 5 Refills 11/24/22 Clopidogrel Bisulfate (Plavix) 75 Mg Tab, 1 TAB PO DAILY, % 11/24/22 Metoprolol Tartrate (Metoprolol Tartrate) 50 Mg Tab, 50 MG PO DAILY, MG 11/24/22 Lisinopril (Lisinopril) 40 Mg Tab, 40 MG PO DAILY, MG 11/24/22 Amlodipine Besylate (Amlodipine Besylate) 5 Mg Tab, 10 MG PO DAILY for 30 Days, MG 11/24/22 Discontinued Reported Medications Levothyroxine Sodium (Synthroid) 112 Mcg Tab, 1 TAB PO AC, TAB 5 Refills 11/24/22 Current Medications Current Medications Medications (Trade) Dose Ordered Sig/Cirilo Route PRN Reason Start Time Stop Time Status Last Admin Sodium Chloride 1,000 ml @ 120 mls/hr Q8H20M IV 03/12/25 16:45 03/13/25 09:58 Acetaminophen/ Hydrocodone Bitart ([place] 5/325MG Tab) 1 tab Q4HP PRN PO MODERATE PAIN (4-6 PAIN SCALE) 03/12/25 16:45 03/13/25 05:55 Ondansetron HCl (Zofran) 4 mg Q4HP PRN IV NAUSEA / VOMITING 03/12/25 16:45 Docusate Sodium (Colace Capsule) 100 mg BIDPRN PRN PO FOR CONSTIPATION 03/12/25 16:45 Enoxaparin Sodium (Lovenox) 40 mg DAILY SC 03/13/25 10:00 03/13/25 10:00 Zinc Sulfate 220 mg DAILY PO 03/13/25 10:00 03/13/25 09:58 Ascorbic Acid (Vitamin C Tablet) 500 mg BID PO 03/12/25 22:00 03/13/25 09:59 Multivitamins (Mvi Tab) 1 tab DAILY PO 03/13/25 10:00 03/13/25 09:59 Acetaminophen (Tylenol Tablet) 650 mg Q6HP PRN PO PAIN SCALE 1-3 OR TEMP>100.4 03/12/25 16:45 03/12/25 22:37 Nitroglycerin (Ntrostat Sublingual) 0.4 mg Q5MINP PRN SL FOR CHEST PAIN 03/12/25 16:45 Morphine Sulfate 2 mg Q30M PRN IV FOR CHEST PAIN 03/12/25 16:45 Hydralazine HCl (Apresoline Injection) 10 mg Q6HP PRN IV SBP>160 03/13/25 00:15 03/13/25 00:40 Morphine Sulfate 2 mg Q4HPRN PRN IV SEVERE PAIN (7-10 PAIN SCALE) 03/13/25 00:15 Amlodipine Besylate (Norvasc Tablet) 10 mg DAILY PO 03/13/25 10:00 03/13/25 09:59 Metoprolol Tartrate (Lopressor Tablet) 50 mg DAILY PO 03/13/25 10:00 03/13/25 09:59 Levothyroxine Sodium (Synthroid Tablet) 100 mcg QAM@0600 PO 03/13/25 06:00 03/13/25 05:51 Review of Systems All systems reviewed otherwise negative other than what is in HPI. Vital Signs Vital Signs Date Time Temp Pulse Resp B/P (MAP) Pulse Ox O2 Delivery O2 Flow Rate FiO2 03/13/25 10:59 72 155/68 03/13/25 08:46 98.6 16 100 98.6 03/13/25 08:00 Room Air* 0 21 Physical Exam Head eyes ears nose and throat exam eyes are nonicteric conjunctiva was pink ne ck was supple no JVD no lymphadenopathy no current bruits lungs are clear to auscultation heart was regular rate and rhythm abdomen soft nontender with no pulsatile abdominal masses or bruits lower extremities palpable femoral pulses bilaterally nonpalpable pedal pulses bilaterally. With the right 1st toe has a dry gangrene of the dorsum of the toe around the toenail with the toenail was recently trimmed. Labs/Diagnostic Data Labs Test 03/13/25 07:51 03/12/25 13:40 Range/Units White Blood Count 12.3 H 4.4-10.8 10^3/uL Red Blood Count 3.70 L 4.0-5.20 10^6/uL Hemoglobin 10.9 L 12.2-16.2 g/dL Hematocrit 32.5 L 36.0-46.0 % Mean Corpuscular Volume 87.9 80.0-100.0 fL Mean Corpuscular Hemoglobin 29.4 28.0-32.0 pg Mean Corpuscular Hemoglobin Concent 33.4 32.0-36.0 g/dL Red Cell Distribution Width 15.0 H 11.8-14.3 % Platelet Count 354 140-450 10^3/uL Mean Platelet Volume 7.4 6.9-10.8 fL Neutrophils (%) (Auto) 70.3 37.0-80.0 % Lymphocytes (%) (Auto) 19.8 10.0-50.0 % Monocytes (%) (Auto) 8.1 0.0-12.0 % Eosinophils (%) (Auto) 1.4 0.0-7.0 % Basophils (%) (Auto) 0.4 0.0-2.0 % Neutrophils # (Auto) 8.7 H 1.6-8.6 10 ^3/uL Lymphocytes # (Auto) 2.4 0.4-5.4 10 ^3/uL Monocytes # (Auto) 1.0 0-1.3 10 ^3/uL Eosinophils # (Auto) 0.2 0-0.8 10 ^3/uL Basophils # (Auto) 0 0-0.2 10 ^3/uL Nucleated Red Blood Cells 0.0 % Sodium Level 141 136-145 mmol/L Potassium Level 3.1 L 3.5-5.1 mmol/L Chloride Level 108 H 98-107 mmol/L Carbon Dioxide Level 25 20-31 mmol/L Anion Gap 8 5-15 Blood Urea Nitrogen 8 L 9-23 mg/dL Creatinine 0.62 0.550-1.02 mg/dL Glomerular Filtration Rate Calc 95 >90 mL/min BUN/Creatinine Ratio 12.9 10.0-20.0 Serum Glucose 99 74-106 mg/dL Calcium Level 8.8 8.7-10.4 mg/dL Lactic Acid Level 1.9 0.4-2.0 mmol/L Assessment Severe right lower extremity b.i.d. with possible SFA occlusion and ischemic changes of the right 1st toe. We will obtain aortogram bilateral lower extremity arteriogram CTA Needs cardiac clearance Plan for surgical endarterectomy possible bypass of the right lower extremity tomorrow if medically cleared. Plan/Recommendation Severe right lower extremity b.i.d. with possible SFA occlusion and ischemic changes of the right 1st toe. We will obtain aortogram bilateral lower extremity arteriogram CTA Needs cardiac clearance Plan for surgical endarterectomy possible bypass of the right lower extremity tomorrow if medically cleared. Plan discussed with: Patient VALERIA MENDOZA Jr., MD Mar 13, 2025 11:53
--- NOTE | 2025-03-13 14:52 | DVH ---
EXAM: CT CT ANGIO ABD AORTA W RUN OFF Reason for study/Clinical History: severe pad COMPARISON STUDY: US AORTA SCREENING on DOS: 06/02/24, CT ABDOMEN WITHOUT CONTRAST on DOS: 11/24/22, US ABDOMEN COMPLETE SONOGRAM on DOS: 11/24/22 CTA bilateral LOWER EXTREMITY RUNOFF WITH CONTRAST DATED 03/13/2025 12:15 PM TECHNIQUE: 3D angiographic acquisition of lower extremities was obtained during the intravenous administration of 100 cc IV without immediate adverse effect. 3D Post processing, including maximum intensity projection, was performed on an independent workstation and images were reviewed on a [facility] PACS. Radiation Dose : CTDI volume is 8.44 mGy. Dose-length product is 1020.71 mGy*cm FINDINGS: Vascular: Bilateral common , external and internal iliac arteries are widely patent without evidence aneurysm, irregularity or stenosis. No abnormal medial deviation of popliteal arteries. There is severe bilateral peripheral arterial disease with greater than 50% stenosis involving the right popliteal artery. There is occlusion of the proximal portion of the right SFA with reconstitution in the mid thigh. There is extensive atherosclerosis. There is single-vessel runoff to both feet through the anterior tibial artery. Other findings: No evidence of venous opacification during arterial phase to suggest fistula or AV malformation. Musculoskeletal: No aggressive focal bony lesions, acute fractures or dislocation. IMPRESSION: There is severe bilateral peripheral arterial disease with greater than 50% stenosis involving the right popliteal artery. There is occlusion of the proximal portion of the right SFA with reconstitution in the mid thigh. There is extensive atherosclerosis. There is single-vessel runoff to both feet through the anterior tibial artery. AL
[2025-03-13 19:43] LABS: INR 1.07 (0.9-1.15); Prothrombin Time 11.3 sec (9.3-11.8)
[2025-03-13] MEDS: HYDROcodone-ACET 10/325MG TAB PO PRN (20:22)
[2025-03-13] MEDS: POTASSIUM CHL 20 Meq TABLET PO ONE (21:40)
[2025-03-13] MEDS: PIPERACILLIN-TAZOB 3.375GM 100 ML IV SCH (21:41)
[2025-03-13] MEDS: MELATONIN 5 MG TAB PO ONE (21:41)
[2025-03-14] VITALS (8 sets, daily range): BP systolic 120–185; BP diastolic 51–70; PULSE 74–122; RESP 11–19; TEMP 98.3–99.5; O2SAT 94–100
[2025-03-14] MEDS: diphenhydrAMINE HCL 50 MG/1 ML VL IV ONE
[2025-03-14] MEDS ORDERED: HALOPERIDOL LACTATE 5 MG/ML INJ VIAL IM ONE (03:00)
[2025-03-14] MEDS ORDERED: HALOPERIDOL LACTATE 5 MG/ML INJ VIAL IM PRN (03:30)
[2025-03-14 06:43] LABS: Hematocrit 31.8 % (36.0-46.0); Hemoglobin 10.7 g/dL (12.2-16.2); Mean Corpuscular Hemoglobin 29.6 pg (28.0-32.0); Mean Corpuscular Volume 88.4 fL (80.0-100.0); Nucleated Red Blood Cells % 0.0 %
[2025-03-14 06:49] LABS: Calcium 9.1 mg/dL (8.7-10.4); Sodium 140 mmol/L (136-145)
[2025-03-14 06:50] LABS: Anion Gap 11 (5-15); Carbon Dioxide 21 mmol/L (20-31)
[2025-03-14 06:52] LABS: Chloride 108 mmol/L (98-107); Potassium 3.3 mmol/L (3.5-5.1)
[2025-03-14 06:55] LABS: BUN/Creatinine Ratio 9.9 (10.0-20.0)
[2025-03-14 07:00] LABS: Blood Urea Nitrogen 7 mg/dL (9-23); Glucose 111 mg/dL (74-106)
--- NOTE | 2025-03-14 09:25 | DVH ---
EXAM: CT HEAD WITHOUT CONTRAST INDICATION: Confusion. TECHNIQUE: CT of the head without intravenous contrast. Coronal and sagittal reformatted images are s ubmitted. Radiation Dose : 1. Head: CT Dose: CTDI volume is 56.05 mGy. Dose-length product is 1.71 mGy*cm The dose indicators for CT are the volume Computed Tomography (CT) Dose Index (CTDIvol) and the Dose Length Product (DLP), and are measured in units of mGy and mGy-cm, respectively. These indicators are not patient dose, but values generated from the CT scanner acquisition factors. The report includes radiation exposure data for exposures received during this examination. All CT scans at this medical facility are performed using dose modulation techniques as appropriate to a performed exam including the following: Automated exposure control was utilized; adjustment of the MA and/or KV according to patient size; and use of iterative reconstruction technique. COMPARISON: None FINDINGS: There is no evidence of acute intracranial hemorrhage, extra-axial collection, mass effect, midline s hift, herniation or hydrocephalus. There are periventricular and subcortical hypodensities, nonspecific, but likely reflecting sequelae of chronic microvascular ischemic changes. The ventricles, sulci and cisterns are age appropriate. The gomez-white differentiation is intact. The visualized paranasal sinuses and mastoid air cells are clear. No depressed calvarial fracture. The surrounding soft tissues are unremarkable. IMPRESSION: 1. No evidence of acute intracranial abnormality.
[2025-03-14] MEDS: GELATIN 1 SPONGE SIZE 50 TOP ONE (09:50)
[2025-03-14] MEDS: THROMBIN (BOVINE) 5000 UNIT SOL VIAL ONE (09:50)
[2025-03-14] MEDS ORDERED: hydrALAZINE HCL 20 MG/ML VL IV PRN (10:15)
[2025-03-14] MEDS ORDERED: HYDROmorphone HCL 2 MG/ML VL/or syr IV PRN (10:15)
[2025-03-14] MEDS ORDERED: ONDANSETRON HCL 4 MG/2 ML VIAL IV PRN (10:15)
[2025-03-14] MEDS ORDERED: METOCLOPRAMIDE HCL 5MG/ml INJ 2ml VIAL IV PRN (10:15)
[2025-03-14] MEDS ORDERED: METOCLOPRAMIDE HCL 5MG/ml INJ 2ml VIAL ONE (10:32)
[2025-03-14] MEDS ORDERED: fentaNYL CITRATE 100 MCG/2 ML VL ONE (10:32)
[2025-03-14] MEDS ORDERED: ONDANSETRON HCL 4 MG/2 ML VIAL ONE (10:32)
[2025-03-14] MEDS ORDERED: MIDAZOLAM HCL 2MG/2ML 2ml VIAL (1mg/ml) ONE (10:32)
[2025-03-14] MEDS ORDERED: LIDOCAINE 1% INJ PF 5ML AMP ONE (10:32)
[2025-03-14] MEDS ORDERED: ROCURONIUM 10MG/ML 10ML VIAL IV ONE (10:33)
[2025-03-14] MEDS ORDERED: PROPOFOL 10 MG/ML 20 ML IV ONE (10:33)
[2025-03-14] MEDS: HEPARIN SODIUM (PORCINE) 5000 UNITS/ML 1ML VIAL ONE (10:50)
[2025-03-14] MEDS: LIDOCAINE 1% HCL (LOCAL ANESTH.) INJ 20ML MDV ONE (10:50)
[2025-03-14] MEDS: BUPIVACAINE HCL 50 ML ONE (10:50)
[2025-03-14] MEDS ORDERED: SODIUM CHLORIDE LOCK 10 ML ONE (11:07)
[2025-03-14] MEDS ORDERED: PHENYLEPHRINE HCL 10 MG/ML VL ONE (11:10)
[2025-03-14] MEDS ORDERED: HYDROmorphone HCL 2 MG/ML VL/or syr ONE (11:53)
[2025-03-14] MEDS ORDERED: SUGAMMADEX 200mg/2ml Vial (100MG/ML) IV ONE (12:00)
--- NOTE | 2025-03-14 13:22 | POSTOP ---
Post-Operative Note Post-Operative Note Preop Diagnosis RIGHT LEG CRITICAL LIMB ISCHEMIA Postop Diagnosis: right patient observation assistant and sfa occlusion Operation performed right common femoral and superficial femoral artery endarterectomy Specimen right patient observation assistant and sfa plaque Anesthesia: General Anesthesiologist: romero Blood Loss(fluid mgmt) 200 ml Surgeon Tc Antonio MD Complications & Mgmt none Date 03/14/25 Time 13:19 TC ANTONIO Jr., MD Mar 14, 2025 13:22
--- NOTE | 2025-03-14 13:24 | DVHOP2 ---
Operative Report - 2 Report Details Date: 03/14/25 Preop Diagnosis: RIGHT LEG CRITICAL LIMB ISCHEMIA Postop Diagnosis: right driver trainee and sfa occlusion Surgeon: Tc Antonio MD Anesthesiologist: heather Anesthesia: General Consent: The patient was informed of the risks and benefits of the procedure. These include but are not limited to complications of anesthesia, postoperative infection, incomplete relief of symptoms, recurrence of symptoms, damage to blood vessels, nerves and tendons, deep venous thrombosis, pulmonary embolism and possible need for repeat surgery in the future. Complications: none Estimated Blood Loss: 200 ml Findings: 100% occlusion of distal common femoral and proximal superficial femoral artery Name of Procedure Performed right common femoral and superficial femoral artery endarterectomy Procedure Details Procedure Details: The patient was identified in the preop hold area. She was consented in preop by myself. She was brought back to the operating room placed the operating table in supine position after adequate induction of anesthesia antibiotics entire the right leg and groin and abdomen was prepped and draped in normal surgical fashion. A longitudinal incision was made above the common femoral artery and the right side Bovie cauterization was used dissecting down to the common femoral artery once the common femoral artery was encountered it was appeared to be occluded for short segment distal common femoral artery the common femoral artery was then isolated at the level of the inguinal ligament it was controlled with vessel loops at this point in time there was a pulse at that area. Distal to that however there was heavy plaque burden with no significant pulse noted dissection was then taken down to multiple branches that was preserved and vessel loops were placed around. The profunda was then isolated and controlled with vessel loops as well. The SFA was also controlled it was dissected out proximally 5 cm due to the artery being occluded and proximally 5 cm the artery became patent once again. At this point in time once all the branches in involved were controlled 5000 units of heparin was given to the patient. The vessels were then clamped and arteriotomy was made in the common femoral artery was extended down to the SFA proximally 5 cm. The occlusive plaque which was including the common femoral and SFA was removed in bulk. There was active backbleeding noted in the profunda once the vessels were unclamped there. The profunda was then flushed with heparinized saline. Dissection to remove any further plaque in the distal SFA was performed with backbleeding noted in the SFA as well. There was minimal bleeding in the external iliac artery a four Nora balloon was then used performing a thrombectomy of that area there was fresh clot noted which was removed then was pulsatile bleeding noted. The in some of the vessels were then flushed with heparinized saline there was no further plaque left behind and a bovine pericardial patch was used to sew to the opening to do a patch angioplasty six 0 Prolene suture was used for the anastomosis of the bovine pericardial patch to the common femoral and SFA. At the completion of the anastomosis all vessels were flushed prior to the suture being tied off. All vessel clamps were then removed flow was restored the patch did have one area of bleeding which was repair with a five 0 Prolene suture. The wound was then irrigated out well there was no further bleeding noted Doppler signals were noted in the SFA the profunda as well as the common femoral artery. The closure was begun with 3-0 Vicryl sutures of the deep layer followed by dermal layer of 3-0 Vicryl sutures followed by skin closure with renny. A sterile dressing was applied and the patient was taken in the PACU in a stable condition. Sponge and needle counts were correct. Family was made aware of all findings. Specimen: right driver trainee and sfa plaque Condition Stable Disposition Still a Patient TC ANTONIO Jr., MD Mar 14, 2025 13:24
--- NOTE | 2025-03-14 14:50 | DVHPN2 ---
Subjective Patient is currently in OR getting vascular surgery as patient has a common femoral artery occlusion on the right side has been as superficial femoral artery. Changes from previous H/P or p: No Changes Eyes: No Pain, No Vision change, No Conjunctivae inflammation, No Eyelid inflammation, No Other, No Redness ENT: No Ear pain, No Ear discharge, No Nose pain, No Nose discharge, No Nose congestion, No Mouth pain, No Mouth swelling, No Throat pain, No Throat swelling, No Other Cardiovascular: No Chest Pain, No Palpitations, No Orthopnea, No Paroxysmal Noc. Dyspnea, No Edema, No Lt Headedness, No Other Respiratory: No Cough, No Dry, No Shortness of breath, No SOB with excertion, No Wheezing, No Hemoptysis, No Pleuritic Pain, No Sputum, No Other Gastrointestinal: No Nausea, No Vomiting, No Abdominal Pain, No Diarrhea, No Constipation, No Melena, No Hematochezia, No Other Genitourinary: No Dysuria, No Frequency, No Incontinence, No Hematuria, No Retention, No Other Musculoskeletal: No other, No neck pain, No shoulder pain, No arm pain, No back pain, No hand pain; leg pain, foot pain Skin: Other (Right great toe blackening with swelling) Objective Vitals Vital Signs Date Time Temp Pulse Resp B/P (MAP) Pulse Ox O2 Delivery O2 Flow Rate FiO2 03/14/25 13:35 81 13 113/52 (72) 13 03/14/25 13:03 98.1 98.1 03/14/25 13:03 Mask 6.0 100 Intake/Output Intake and Output 03/14/25 07:00 Intake Total 2052 ml Balance 2052 ml Intake Oral 952 ml IV Total 1100 ml # Voids 5 # Bowel Movements 2 Medications Current Medications Medications Dose Ordered Sig/Cirilo Route Start Time Stop Time Status Last Admin Dose Admin Sodium Chloride 1,000 ml @ 120 mls/hr Q8H20M IV 03/12/25 16:45 03/13/25 09:58 120 MLS/HR Ondansetron HCl 4 mg Q4HP PRN IV 03/12/25 16:45 Docusate Sodium 100 mg BIDPRN PRN PO 03/12/25 16:45 Enoxaparin Sodium 40 mg DAILY SC 03/13/25 10:00 03/13/25 10:00 40 MG Zinc Sulfate 220 mg DAILY PO 03/13/25 10:00 03/13/25 09:58 220 MG Ascorbic Acid 500 mg BID PO 03/12/25 22:00 03/13/25 21:41 500 MG Multivitamins 1 tab DAILY PO 03/13/25 10:00 03/13/25 09:59 1 TAB Acetaminophen 650 mg Q6HP PRN PO 03/12/25 16:45 03/12/25 22:37 650 MG Nitroglycerin 0.4 mg Q5MINP PRN SL 03/12/25 16:45 Morphine Sulfate 2 mg Q30M PRN IV 03/12/25 16:45 Hydralazine HCl 10 mg Q6HP PRN IV 03/13/25 00:15 03/14/25 10:03 10 MG Morphine Sulfate 2 mg Q4HPRN PRN IV 03/13/25 00:15 Amlodipine Besylate 10 mg DAILY PO 03/13/25 10:00 03/14/25 08:31 10 MG Metoprolol Tartrate 50 mg DAILY PO 03/13/25 10:00 03/14/25 08:30 50 MG Levothyroxine Sodium 100 mcg QAM@0600 PO 03/13/25 06:00 03/13/25 05:51 100 MCG Acetaminophen/ Hydrocodone Bitart 1 tab Q6HP PRN PO 03/13/25 17:30 03/14/25 08:24 1 TAB Piperacillin Sod/ Tazobactam Sod 100 ml @ 25 mls/hr Q8HR IV 03/13/25 22:00 03/14/25 14:04 25 MLS/HR Oxycodone/ Acetaminophen 1 tab Q4HP PRN PO 03/14/25 13:15 Laboratory Results Laboratory Tests 03/14/25 05:59 Chemistry Test 03/14/25 05:59 Calcium Level 9.1 mg/dL (8.7-10.4) Coagulation Test 03/13/25 19:07 Prothrombin Time 11.3 sec (9.3-11.8) Prothrombin Time INR 1.07 (0.9-1.15) Microbiology Microbiology Date/Time Source Procedure Growth Status 03/12/25 13:35 Blood Blood Culture - Preliminary NO GROWTH AFTER 48 HOURS OF INCUBATION. Resulted Assessment/Plan Assessment/Plan 74-year-old female with a known history of peripheral vascular disease, hypertension, hypothyroidism, dyslipidemia initially presented to the hospital with a right foot pain found to have 1. Right great toe osteomyelitis 2. Severe peripheral arterial disease bilateral lower extremity 3. Occlusion of the right superficial femoral, occlusion of the common femoral artery on the right side status post right superficial femoral artery endarterectomy has been as common femoral artery endarterectomy postop day 0 4. Extensive atherosclerosis of with a bilateral lower extremity arteries 5. Hypertension 6. Dyslipidemia 7. Hypothyroidism -patient is status post right superficial femoral artery endarterectomy has been as common femoral artery endarterectomy on right side, continue IV antibiotics -follow up vascular surgery, Infectious Disease recommendations. Plan discussed with: Other My Orders Orders - LEXI PHILLIPS MD Procedure Category Date Status Time Hydrocodone-Acet PHA 03/13/25 In Process 10/325mg Tab ([place] 17:30 Apply: BRAD 03/13/25 In Process 14:15 * Dietary Consult CONS 03/13/25 Transmitted 18:26 Date of Service: Mar 14, 2025 Billing Provider: LEXI PHILLIPS MD Common Visit Codes: NOT BILLABLE LEXI PHILLIPS MD Mar 14, 2025 14:50
[2025-03-15] VITALS (8 sets, daily range): BP systolic 122–154; BP diastolic 47–82; PULSE 92–103; RESP 16–22; TEMP 97.8–99.8; O2SAT 95–99
[2025-03-15] MEDS: OXYCODONE W/ ACETAMINOPHEN 5/325MG TABLET PO PRN (00:36)
--- NOTE | 2025-03-15 07:24 | DVHPN2 ---
Progress Note Date Seen: Mar 15, 2025 Has the PT tested + for MRSA If YES, has PT been informed?: No Medical Necessity Reason Pt with a Central, PICC or Fol: No Subjective Review of Systems: HEENT:Normal, CVS:Normal, RESPIRATORY:Normal, GI:Normal, :Normal, MSK:Normal, NEURO:Normal Objective vital signs Vital Sign Date Time Temp Pulse Resp B/P (MAP) Pulse Ox O2 Delivery O2 Flow Rate FiO2 03/15/25 05:00 97.8 103 22 140/59 (86) 97 97.8 03/14/25 20:00 Room Air* 0 21 Total Intake and Output 03/14/25 03/14/25 03/15/25 15:00 23:00 07:00 Intake Total 110 ml 450 ml 620 ml Balance 110 ml 450 ml 620 ml medications Current Medications Medications Dose Ordered Sig/Cirilo Route Start Time Stop Time Status Last Admin Dose Admin Sodium Chloride 1,000 ml @ 120 mls/hr Q8H20M IV 03/12/25 16:45 03/15/25 03:32 120 MLS/HR Ondansetron HCl 4 mg Q4HP PRN IV 03/12/25 16:45 Docusate Sodium 100 mg BIDPRN PRN PO 03/12/25 16:45 Enoxaparin Sodium 40 mg DAILY SC 03/13/25 10:00 03/13/25 10:00 40 MG Zinc Sulfate 220 mg DAILY PO 03/13/25 10:00 03/13/25 09:58 220 MG Ascorbic Acid 500 mg BID PO 03/12/25 22:00 03/14/25 22:06 500 MG Multivitamins 1 tab DAILY PO 03/13/25 10:00 03/13/25 09:59 1 TAB Acetaminophen 650 mg Q6HP PRN PO 03/12/25 16:45 03/12/25 22:37 650 MG Nitroglycerin 0.4 mg Q5MINP PRN SL 03/12/25 16:45 Morphine Sulfate 2 mg Q30M PRN IV 03/12/25 16:45 Hydralazine HCl 10 mg Q6HP PRN IV 03/13/25 00:15 03/14/25 10:03 10 MG Morphine Sulfate 2 mg Q4HPRN PRN IV 03/13/25 00:15 Amlodipine Besylate 10 mg DAILY PO 03/13/25 10:00 03/14/25 08:31 10 MG Metoprolol Tartrate 50 mg DAILY PO 03/13/25 10:00 03/14/25 08:30 50 MG Levothyroxine Sodium 100 mcg QAM@0600 PO 03/13/25 06:00 03/15/25 06:15 100 MCG Acetaminophen/ Hydrocodone Bitart 1 tab Q6HP PRN PO 03/13/25 17:30 03/15/25 06:16 1 TAB Piperacillin Sod/ Tazobactam Sod 100 ml @ 25 mls/hr Q8HR IV 03/13/25 22:00 03/15/25 06:16 25 MLS/HR Oxycodone/ Acetaminophen 1 tab Q4HP PRN PO 03/14/25 13:15 03/15/25 00:36 1 TAB Examination: GENERAL:Normal, HEENT:Normal, NECK:Normal, LUNGS:Normal, CVS:Normal, ABDOMEN:Normal, MSK:Abnormal (Right groin soft. bandage intact. serosang. stained unchanged since last pm. right 1st toe unchanged dry gangrened of the dorsum . foot is warmer ), SKIN:Normal, NEURO:Normal, :Normal laboratory and microbiology Laboratory Tests 03/14/25 05:59 Test 03/14/25 05:59 Range/Units Serum Glucose 111 H 74-106 mg/dL Microbiology Date/Time Source Procedure Growth Status 03/13/25 22:01 Blood Blood Culture - Preliminary NO GROWTH AFTER 24 HOURS OF INCUBATION. Resulted Problem List/Assessment/Plan Problems(with codes): (1) Necrosis of toe Problem List/Assessment/Plan pod 1 s/p right merchandise flow team member/sfa endartectomy PT OOB Pain control antibiotics. Plan discussed with: Patient My Orders My Orders Orders - VALERIA MENDOZA Jr., MD Procedure Category Date Status Time Cardiac DIET 03/14/25 Transmitted Diet-2gna,Lofat,Lochol Lunch Oxycodone W/ Acet PHA 03/14/25 In Process 5/325mg Tab (Percocet 13:15 Communication Order ORDERS 03/14/25 Transmitted 14:45 VALERIA MENDOZA Jr., MD Mar 15, 2025 07:23
[2025-03-15 07:57] LABS: Urine Protein, UAD Negative (Negative)
[2025-03-15 08:50] LABS: Sodium 142 mmol/L (136-145)
[2025-03-15 08:51] LABS: Anion Gap 8 (5-15); Carbon Dioxide 25 mmol/L (20-31)
[2025-03-15 08:54] LABS: Hematocrit 28.3 % (36.0-46.0); Hemoglobin 9.3 g/dL (12.2-16.2); Mean Corpuscular Hemoglobin 29.0 pg (28.0-32.0); Mean Corpuscular Volume 87.9 fL (80.0-100.0); Nucleated Red Blood Cells % 0.1 %
[2025-03-15 08:57] LABS: BUN/Creatinine Ratio 8.6 (10.0-20.0); Glucose 106 mg/dL (74-106)
[2025-03-15 09:03] LABS: Blood Urea Nitrogen 5 mg/dL (9-23); Calcium 8.1 mg/dL (8.7-10.4); Chloride 109 mmol/L (98-107); Potassium 3.2 mmol/L (3.5-5.1)
[2025-03-15] MEDS ORDERED: VANCOMYCIN PER PHARMACY 0 MG IV SCH (12:30)
[2025-03-16] VITALS (8 sets, daily range): BP systolic 140–155; BP diastolic 57–94; PULSE 71–100; RESP 18–22; TEMP 98.2–99.5; O2SAT 93–100
[2025-03-16 07:01] LABS: Hematocrit 27.4 % (36.0-46.0); Hemoglobin 9.1 g/dL (12.2-16.2); Mean Corpuscular Hemoglobin 29.5 pg (28.0-32.0); Mean Corpuscular Volume 89.4 fL (80.0-100.0); Nucleated Red Blood Cells % 0.0 %
[2025-03-16 07:19] LABS: Chloride 107 mmol/L (98-107); Sodium 140 mmol/L (136-145)
[2025-03-16 07:20] LABS: Anion Gap 7 (5-15); Carbon Dioxide 26 mmol/L (20-31)
[2025-03-16 07:21] LABS: Calcium 8.7 mg/dL (8.7-10.4)
[2025-03-16 07:26] LABS: BUN/Creatinine Ratio 10.7 (10.0-20.0)
[2025-03-16 07:38] LABS: Potassium 3.3 mmol/L (3.5-5.1)
[2025-03-16 07:39] LABS: Blood Urea Nitrogen 6 mg/dL (9-23); Glucose 117 mg/dL (74-106)
[2025-03-16] MEDS: VANCOMYCIN 1.25GM/250ML 250 ML IV ONE ×2 (11:00→12:00)
--- NOTE | 2025-03-16 11:10 | DVHPN2 ---
Subjective Patient was seen and evaluated by me currently on IV antibiotics, discussed with Dr. Antonio who recommended PICC line and IV antibiotics for 6 weeks because of the toe gangrene. Infectious disease consult will be placed. Changes from previous H/P or p: No Changes Eyes: No Pain, No Vision change, No Conjunctivae inflammation, No Eyelid inflammation, No Other, No Redness ENT: No Ear pain, No Ear discharge, No Nose pain, No Nose discharge, No Nose congestion, No Mouth pain, No Mouth swelling, No Throat pain, No Throat swelling, No Other Cardiovascular: No Chest Pain, No Palpitations, No Orthopnea, No Paroxysmal Noc. Dyspnea, No Edema, No Lt Headedness, No Other Respiratory: No Cough, No Dry, No Shortness of breath, No SOB with excertion, No Wheezing, No Hemoptysis, No Pleuritic Pain, No Sputum, No Other Gastrointestinal: No Nausea, No Vomiting, No Abdominal Pain, No Diarrhea, No Constipation, No Melena, No Hematochezia, No Other Genitourinary: No Dysuria, No Frequency, No Incontinence, No Hematuria, No Retention, No Other Musculoskeletal: No other, No neck pain, No shoulder pain, No arm pain, No back pain, No hand pain; leg pain, foot pain Skin: Other (Right great toe blackening with swelling) Objective Vitals Vital Signs Date Time Temp Pulse Resp B/P (MAP) Pulse Ox O2 Delivery O2 Flow Rate FiO2 03/15/25 11:06 105 171/74 03/15/25 05:00 97.8 22 97 97.8 03/14/25 20:00 Room Air* 0 21 Intake/Output Intake and Output 03/15/25 07:00 Intake Total 1180 ml Output Total 750 ml Balance 430 ml Intake Oral 970 ml IV Total 210 ml Output Urine Total 750 ml # Voids 4 # Bowel Movements 1 Exam HEENT pupils are reactive Neck is supple CV system S2 regular rate and rhythm Respiratory bilateral diminished breath sounds GI positive bowel sounds Extremities no pedal edema 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 Medications Current Medications Medications Dose Ordered Sig/Cirilo Route Start Time Stop Time Status Last Admin Dose Admin Sodium Chloride 1,000 ml @ 120 mls/hr [id number] IV 03/12/25 16:45 03/15/25 03:32 120 MLS/HR Ondansetron HCl 4 mg Q4HP PRN IV 03/12/25 16:45 Docusate Sodium 100 mg BIDPRN PRN PO 03/12/25 16:45 Enoxaparin Sodium 40 mg DAILY SC 03/13/25 10:00 03/15/25 11:06 40 MG Zinc Sulfate 220 mg DAILY PO 03/13/25 10:00 03/15/25 11:00 220 MG Ascorbic Acid 500 mg BID PO 03/12/25 22:00 03/15/25 11:05 500 MG Multivitamins 1 tab DAILY PO 03/13/25 10:00 03/15/25 11:05 1 TAB Acetaminophen 650 mg Q6HP PRN PO 03/12/25 16:45 03/12/25 22:37 650 MG Nitroglycerin 0.4 mg Q5MINP PRN SL 03/12/25 16:45 Morphine Sulfate 2 mg Q30M PRN IV 03/12/25 16:45 Hydralazine HCl 10 mg Q6HP PRN IV 03/13/25 00:15 03/14/25 10:03 10 MG Morphine Sulfate 2 mg Q4HPRN PRN IV 03/13/25 00:15 Amlodipine Besylate 10 mg DAILY PO 03/13/25 10:00 03/15/25 11:05 10 MG Metoprolol Tartrate 50 mg DAILY PO 03/13/25 10:00 03/15/25 11:06 50 MG Levothyroxine Sodium 100 mcg QAM@0600 PO 03/13/25 06:00 03/15/25 06:15 100 MCG Acetaminophen/ Hydrocodone Bitart 1 tab Q6HP PRN PO 03/13/25 17:30 03/15/25 06:16 1 TAB Piperacillin Sod/ Tazobactam Sod 100 ml @ 25 mls/hr Q8HR IV 03/13/25 22:00 03/15/25 06:16 25 MLS/HR Oxycodone/ Acetaminophen 1 tab Q4HP PRN PO 03/14/25 13:15 03/15/25 00:36 1 TAB Laboratory Results Laboratory Tests 03/15/25 08:16 Chemistry Test 03/15/25 08:16 Calcium Level 8.1 mg/dL (8.7-10.4) L Urinalysis Test 03/15/25 05:21 Urine Color Light-yellow (Yellow) Urine Clarity Clear (Clear) Urine pH 6.5 (5.0-9.0) Urine Specific [place] 1.017 (1.001-1.035) Urine Protein Negative (Negative) Urine Ketones Trace (Negative) Urine Blood Negative /uL (Negative) Urine Nitrite Negative (Negative) Urine Bilirubin Negative (Negative) Urine Urobilinogen Normal mg/dL (Negative) Urine Leukocyte Esterase Negative /uL (Negative) Urine RBC 2 /hpf (0 - 4) Urine Microscopic WBC 1 /HPF (0-5) Urine Squamous Epithelial Cells Few /hpf (<5) Urine Bacteria None seen /hpf (None Seen) Urine Glucose Normal mg/dL (Normal) Microbiology Microbiology Date/Time Source Procedure Growth Status 03/13/25 22:01 Blood Blood Culture - Preliminary NO GROWTH AFTER 24 HOURS OF INCUBATION. Resulted Assessment/Plan Assessment/Plan 74-year-old female with a known history of peripheral vascular disease, hypertension, hypothyroidism, dyslipidemia initially presented to the hospital with a right foot pain found to have 1. Right great toe necrosis 2. Severe peripheral arterial disease bilateral lower extremity 3. Occlusion of the right superficial femoral, occlusion of the common femoral artery on the right side status post right superficial femoral artery endarterectomy has been as common femoral artery endarterectomy postop day 1 4. Extensive atherosclerosis of with a bilateral lower extremity arteries 5. Hypertension 6. Dyslipidemia 7. Hypothyroidism 8. Acute delirium with underlying early cognitive decline -patient is status post right superficial femoral artery endarterectomy has been as common femoral artery endarterectomy on right side, continue IV antibiotics -follow up vascular surgery, Infectious Disease recommendations. We will get a PICC line and arrange IV antibiotics.- Discharge plan possibly tomorrow Plan discussed with: Patient My Orders Orders - LEXI PHILLIPS MD Procedure Category Date Status Time * Infectious [place]- CONS 03/15/25 Transmitted [place] 11:23 * Picc Line Consult CONS 03/15/25 Transmitted 12:22 Vancomycin PHA 03/15/25 Transmitted 12:30 Date of Service: Mar 15, 2025 Billing Provider: LEXI PHILLIPS MD Common Visit Codes: NOT BILLABLE LEXI PHILLIPS MD Mar 15, 2025 12:27
[2025-03-16] MEDS: LIDOCAINE 1% (LOCAL ANESTH.) PF 5ml SDV ID ONE (13:25)
[2025-03-16] MEDS: SODIUM CHLORIDE 0.9% 1,000 ML IV SCH (14:15)
--- NOTE | 2025-03-16 14:25 | DVHPN2 ---
Progress Note - Dictate Date Seen: Mar 16, 2025 Has the PT tested + for MRSA If YES, has PT been informed?: No Medical Necessity Reason Pt with a Central, PICC or Fol: No Subjective At present Patient is alert and awake knows her name that she is in the hospital. Per nurse apparently patient intermittently confused. Waiting for Infectious Disease to make recommendations for IV antibiotics at home. Patient had a PICC line placed this morning. vital signs Vital Sign Date Time Temp Pulse Resp B/P (MAP) Pulse Ox O2 Delivery O2 Flow Rate FiO2 03/16/25 13:00 99.5 71 22 155/67 (96) 94 99.5 03/16/25 08:00 Room Air* 0 21 Total Intake and Output 03/15/25 03/15/25 03/16/25 15:00 23:00 07:00 Intake Total 644 ml 800 ml Output Total 650 ml 1000 ml Balance -6 ml -200 ml medications Current Medications Medications Dose Ordered Sig/Cirilo Route Start Time Stop Time Status Last Admin Dose Admin Ondansetron HCl 4 mg Q4HP PRN IV 03/12/25 16:45 Docusate Sodium 100 mg BIDPRN PRN PO 03/12/25 16:45 Enoxaparin Sodium 40 mg DAILY SC 03/13/25 10:00 03/16/25 11:03 40 MG Zinc Sulfate 220 mg DAILY PO 03/13/25 10:00 03/16/25 11:03 220 MG Ascorbic Acid 500 mg BID PO 03/12/25 22:00 03/16/25 11:06 500 MG Multivitamins 1 tab DAILY PO 03/13/25 10:00 03/16/25 11:03 1 TAB Acetaminophen 650 mg Q6HP PRN PO 03/12/25 16:45 03/12/25 22:37 650 MG Nitroglycerin 0.4 mg Q5MINP PRN SL 03/12/25 16:45 Hydralazine HCl 10 mg Q6HP PRN IV 03/13/25 00:15 03/14/25 10:03 10 MG Amlodipine Besylate 10 mg DAILY PO 03/13/25 10:00 03/16/25 11:05 10 MG Metoprolol Tartrate 50 mg DAILY PO 03/13/25 10:00 03/16/25 11:06 50 MG Levothyroxine Sodium 100 mcg QAM@0600 PO 03/13/25 06:00 03/16/25 05:32 100 MCG Oxycodone/ Acetaminophen 1 tab Q4HP PRN PO 03/14/25 13:15 03/16/25 00:20 1 TAB Vancomycin HCl 0 ml @ 0 mls/hr PER PHARMACY IV 03/15/25 12:30 Sodium Chloride 10 ml QSHIFT@10,22 IV 03/16/25 22:00 Sodium Chloride 1,000 ml @ 60 mls/hr [id number] IV 03/16/25 14:15 UNV Ceftriaxone Sodium 50 ml @ 100 mls/hr DAILY@09 IV 03/17/25 09:00 UNV objective Alert awake oriented to place and person. HEENT neck supple no JVD pupils equal round react to light. Heart regular rate and rhythm S1-S2. Lungs fair air movement without rales wheezes. Abdomen soft nontender positive bowel sounds. Extremities no edema positive pulses. Foot has large toe black with the demarcation and no drainage or foul smell noted. laboratory and microbiology Laboratory Tests 03/16/25 06:18 Test 03/16/25 06:18 Range/Units Serum Glucose 117 H 74-106 mg/dL Assessment/Plan 1. Right great toe necrosis 2. Severe peripheral arterial disease bilateral lower extremity 3. Occlusion of the right superficial femoral, occlusion of the common femoral artery on the right side status post right superficial femoral artery endarterectomy has been as common femoral artery endarterectomy postop day 2 4. Extensive atherosclerosis of with a bilateral lower extremity arteries 5. Hypertension 6. Dyslipidemia 7. Hypothyroidism 8. Acute delirium with underlying early cognitive decline -patient is status post right superficial femoral artery endarterectomy has been as common femoral artery endarterectomy on right side, continue IV antibiotics -follow up vascular surgery, Infectious Disease recommendations. We will get a PICC line and arrange IV antibiotics. Continue current supportive care and treatment. I will DC Zosyn and start her on Rocephin 1 g IV daily and continue the vancomycin per pharmacy protocol. Cut down the fluids to 60 mL/hour. Discussed with the patient as well as the nurse at bedside regarding care plan. Dietary Evaluation Review Comments: Nutrition Recommendation: 1) Eddie 1pk BID 2) Monitor PO intake, lab values, weight trend, and I/O Expected Outcomes/Goals: Wound to improve Fu 3-5 days Plan discussed with: Other GANAPAVARAPU,ROCKY MD Mar 16, 2025 14:25
--- NOTE | 2025-03-16 14:30 | DVHINCON2 ---
Date of service: Mar 15, 2025 Family History: Patient reports no known family medical history. Allergies: Coded Allergies: NO KNOWN ALLERGIES (Unverified , 11/24/22) Home Meds Active Scripts Metronidazole (Flagyl) 500 Mg Tab, 1 TAB PO TID for 14 Days, #42 TAB Prov:SHANNON MAHMOOD MD 03/16/25 Reported Medications Cetirizine Hcl (Kls Aller-Clarita) 10 Mg Tab, 1 TAB PO DAILY, #30 TAB 3 Refills 03/12/25 Docusate Sodium (Colace) 100 Mg Cap, 1 CAP PO BID, #30 CAP 03/12/25 Montelukast Sodium (Singulair) 5 Mg Chw, 10 MG PO DAILY, TAB.CHEW 03/12/25 Montelukast Sodium (MONTELUKAST SODIUM) 10 Mg Tab, 1 TAB PO DAILY, #30 TAB 5 Refills 03/12/25 Ergocalciferol (VITAMIN D 10982 UNIT) 50,000 [place], [address] UNIT PO QWEEKLY, CAP 03/12/25 Levothyroxine Sodium (SYNTHROID TABLET) 100 Mcg Tb, 1 TAB PO DAILY, #30 TAB 5 Refills 11/24/22 Clopidogrel Bisulfate (Plavix) 75 Mg Tab, 1 TAB PO DAILY, % 11/24/22 Metoprolol Tartrate (Metoprolol Tartrate) 50 Mg Tab, 50 MG PO DAILY, MG 11/24/22 Lisinopril (Lisinopril) 40 Mg Tab, 40 MG PO DAILY, MG 11/24/22 Amlodipine Besylate (Amlodipine Besylate) 5 Mg Tab, 10 MG PO DAILY for 30 Days, MG 11/24/22 Discontinued Reported Medications Levothyroxine Sodium (Synthroid) 112 Mcg Tab, 1 TAB PO AC, TAB 5 Refills 11/24/22 Current Medications Current Medications Medications (Trade) Dose Ordered Sig/Cirilo Route PRN Reason Start Time Stop Time Status Last Admin Sodium Chloride (Saline Lock Ns) 10 ml QSHIFT@10,22 IV 03/16/25 22:00 Sodium Chloride 1,000 ml @ 60 mls/hr [id number] IV 03/16/25 14:15 UNV Ceftriaxone Sodium 50 ml @ 100 mls/hr DAILY@09 IV 03/17/25 09:00 UNV Vital Signs Vital Signs Date Time Temp Pulse Resp B/P (MAP) Pulse Ox O2 Delivery O2 Flow Rate FiO2 03/16/25 13:00 99.5 71 22 155/67 (96) 94 99.5 03/16/25 08:00 Room Air* 0 21 Labs/Diagnostic Data Labs Test 03/16/25 06:18 03/15/25 05:21 03/13/25 19:07 03/12/25 13:40 Range/Units White Blood Count 14.1 H 4.4-10.8 10^3/uL Red Blood Count 3.06 L 4.0-5.20 10^6/uL Hemoglobin 9.1 L 12.2-16.2 g/dL Hematocrit 27.4 L 36.0-46.0 % Mean Corpuscular Volume 89.4 80.0-100.0 fL Mean Corpuscular Hemoglobin 29.5 28.0-32.0 pg Mean Corpuscular Hemoglobin Concent 33.0 32.0-36.0 g/dL Red Cell Distribution Width 15.1 H 11.8-14.3 % Platelet Count 283 140-450 10^3/uL Mean Platelet Volume 7.5 6.9-10.8 fL Neutrophils (%) (Auto) 75.1 37.0-80.0 % Lymphocytes (%) (Auto) 15.2 10.0-50.0 % Monocytes (%) (Auto) 8.5 0.0-12.0 % Eosinophils (%) (Auto) 1.1 0.0-7.0 % Basophils (%) (Auto) 0.1 0.0-2.0 % Neutrophils # (Auto) 10.6 H 1.6-8.6 10 ^3/uL Lymphocytes # (Auto) 2.1 0.4-5.4 10 ^3/uL Monocytes # (Auto) 1.2 0-1.3 10 ^3/uL Eosinophils # (Auto) 0.2 0-0.8 10 ^3/uL Basophils # (Auto) 0 0-0.2 10 ^3/uL Nucleated Red Blood Cells 0.0 % Sodium Level 140 136-145 mmol/L Potassium Level 3.3 L 3.5-5.1 mmol/L Chloride Level 107 98-107 mmol/L Carbon Dioxide Level 26 20-31 mmol/L Anion Gap 7 5-15 Blood Urea Nitrogen 6 L 9-23 mg/dL Creatinine 0.56 0.550-1.02 mg/dL Glomerular Filtration Rate Calc 97 >90 mL/min BUN/Creatinine Ratio 10.7 10.0-20.0 Serum Glucose 117 H 74-106 mg/dL Calcium Level 8.7 8.7-10.4 mg/dL Random Vancomycin Level < 3.0 L 5-10 ug/mL Urine Color Light-yellow Yellow Urine Clarity Clear Clear Urine pH 6.5 5.0-9.0 Urine Specific [place] 1.017 1.001-1.035 Urine Protein Negative Negative Urine Ketones Trace Negative Urine Blood Negative Negative /uL Urine Nitrite Negative Negative Urine Bilirubin Negative Negative Urine Urobilinogen Normal Negative mg/dL Urine Leukocyte Esterase Negative Negative /uL Urine RBC 2 0 - 4 /hpf Urine Microscopic WBC 1 0-5 /HPF Urine Squamous Epithelial Cells Few <5 /hpf Urine Bacteria None seen None Seen /hpf Urine Glucose Normal Normal mg/dL Prothrombin Time 11.3 9.3-11.8 sec Prothrombin Time INR 1.07 0.9-1.15 Lactic Acid Level 1.9 0.4-2.0 mmol/L Microbiology Date/Time Source Procedure Growth Status 03/13/25 22:01 Blood Blood Culture - Preliminary NO GROWTH AFTER 48 HOURS OF INCUBATION. Resulted Problems(with codes): (1) Necrosis of toe (2) Sepsis, unspecified organism (3) Leukocytosis (4) Acute UTI (urinary tract infection) Plan/Recommendation ASSESSMENT AND PLAN: ID Problem List: \-- Right foot cellulitis \-- Dry gangrene of right great toe and right fifth toe \-- Severe peripheral arterial disease (PAD) of right lower extremity \-- Hypertension \-- Hypothyroidism \-- History of pelvic inflammatory disease Assessment This is a 74-year-old female with a past medical history of hypertension, hypothyroidism, and pelvic inflammatory disease who presents with four days of right foot swelling and blackening of the right great and fifth toes. Exam notable for right foot edema and dry gangrenous changes of the involved toes without wet gangrene. CT of the right foot demonstrated generalized soft tissue edema without focal fluid collections or erosive changes; severe degenerative changes at the first MTP joint with complete joint space loss and osteophytes, with additional degenerative changes in the midfoot. Arterial duplex of the leg showed severe PAD. Blood cultures were obtained today and are pending. She reportedly underwent a reperfusion endarterectomy with intraoperative finding of 100% occlusion of the distal femoral and proximal femoral artery. There is leukocytosis and mildly elevated temperatures reported, without acute signs of severe sepsis. Overall, presentation is consistent with right foot cellulitis in the setting of severe PAD and dry gangrene of the right great and fifth toes, without imaging evidence of abscess or osteomyelitis. Plan: \-- Start IV vancomycin and IV ceftriaxone; planned duration approximately 14 days given cellulitis with leukocytosis and low concern for Pseudomonas in this scenario \-- Add oral metronidazole (Flagyl) for anaerobic coverage given mild odor reported \-- Antibiotic administration: IV therapy to continue via midline; vancomycin may be administered via PICC line for two weeks as noted \-- Blood cultures obtained today; follow for growth and adjust antibiotics per culture and sensitivity results \-- No evidence of localized abscess on CT; continue to monitor for development of collection or signs of wet gangrene \-- Podiatry: recommend follow-up for wound care and likely debridement as clinically indicated \-- Vascular surgery: defer to vascular surgery for outpatient monitoring and management of severe PAD status post reperfusion endarterectomy \-- Infectious Diseases: follow-up after the two-week antibiotic period to reassess need for additional antibiotics Isolation Precautions: Not specified in transcript. Plan is subject to change pending incorporation of new incoming information/diagnostics. Electronically signed by: Shannon Mahmood MD, 03/16/2025 History: History obtained from: Transcript of todays encounter. Yesenia Pop is a 74-year-old female with a past medical history of hypertension, hypothyroidism, and pelvic inflammatory disease who presents with four days of right foot swelling and blackening of the right great and fifth toes. CT right foot shows generalized soft tissue edema without focal fluid collection or erosive changes; severe degenerative changes at the first MTP joint with complete joint space loss and osteophytes; additional degenerative changes in the midfoot. Arterial duplex of the leg demonstrates severe pe ripheral arterial disease. Blood cultures were obtained today. She underwent a reperfusion endarterectomy with intraoperative finding of 100% occlusion of the distal femoral and proximal femoral artery. Review of Systems: A complete ROS was not provided in the transcript. Pertinent positives and negatives are as noted in the HPI (right foot swelling; blackening of right great and fifth toes; no noted wet gangrene; no focal fluid collections on imaging). -Constitutional: Not discussed -HEENT: Not discussed -Respiratory: Not discussed -Cardiovascular: Not discussed -Gastrointestinal: Not discussed -Genitourinary: Not discussed -Musculoskeletal: Right foot swelling noted -Skin: Dry gangrene of right great and fifth toes noted -Neurological: Not discussed -Psychiatric: Not discussed Past Medical History: -Hypertension -Hypothyroidism -Pelvic inflammatory disease (history) Past Surgical History: -Not provided in transcript Home Medications: -Not provided in transcript Allergies: -Not provided in transcript Family History: -Not provided in transcript Social History: -Tobacco use: No smoking history (per transcript) -Alcohol use: No alcohol use (per transcript) -Other substance use: Not provided in transcript -Sexual history: Not provided in transcript -Other social determinants: Not provided in transcript Objective: Vital Signs on Arrival: -Not provided in transcript Most Recent Vital Signs: -Temp: Not provided -BP: 168/85 mmHg -Pulse: Not provided -Resp: 16 breaths/min -SpO2: 98% on room air Admission Weight/BMI: Not provided in transcript Physical Exam: General: NAD Neck: Supple. No masses. HEENT: PERRL. Normal lids and conjunctiva. Moist mucous membranes. Oropharynx without lesions, exudates or excessive erythema. Normal appearance of the external aspects of the nose and ears. Heart: Regular rhythm, normal rate. No murmur. No lower extremity edema. Lungs: Normal respiratory effort. Clear to auscultation bilaterally. No wheezes. No crackles. Abdomen: Soft. Non-tender. Non-distended. No masses or abdominal hernia. Msk: No digital cyanosis. Normal strength and tone in all 4 limbs. Right foot edema present. Skin: Warm and dry, no rashes. Dry gangrene of the right great toe and right fifth toe. No purulent drainage. No wet gangrenous changes noted. Neuro: Alert. No facial droop or slurred speech. Extra-ocular movements intact. Sensation intact to soft touch in all 4 limbs. Psych: Appropriate mood. Full affect. Oriented to person, place, time, and situation. Lines: -Not provided in transcript Diagnostic Studies: Available diagnostic studies were reviewed. Significant findings are summarized below and addressed in the Assessment and Plan. -Blood cultures: Obtained today; results pending. -Laboratory: Leukocytosis reported; mildly elevated temperatures reported (no specific values provided). Pertinent Imaging: -CT Right Foot: Impression: Generalized soft tissue edema. No focal fluid collections. No erosive changes. Severe degenerative changes of the first MTP joint with complete joint space loss and osteophytes. Additional degenerative changes in the midfoot. -Arterial Duplex (Right Lower Extremity): Impression: Severe peripheral arterial disease (details not otherwise specified in transcript). -Vascular Surgery (Procedure): Reperfusion endarterectomy performed; intraoperative finding of 100% occlusion of the distal femoral and proximal femoral artery. Plan discussed with: Patient SHANNON MAHMOOD MD Mar 16, 2025 14:30
[2025-03-16] MEDS ORDERED: METR-344 PO (15:01)
--- NOTE | 2025-03-16 15:04 | DVHPN2 ---
Consult Progress Note Date Seen: Mar 16, 2025 Subjective Patient reports: Feels better (doing well, ongoing odor, edema, tenderness of toe) Objective vital signs Vital Sign Date Time Temp Pulse Resp B/P (MAP) Pulse Ox O2 Delivery O2 Flow Rate FiO2 03/16/25 13:00 99.5 71 22 155/67 (96) 94 99.5 03/16/25 08:00 Room Air* 0 21 Total Intake and Output 03/15/25 03/15/25 03/16/25 15:00 23:00 07:00 Intake Total 644 ml 800 ml Output Total 650 ml 1000 ml Balance -6 ml -200 ml medications Current Medications Medications Dose Ordered Sig/Cirilo Route Start Time Stop Time Status Last Admin Dose Admin Ondansetron HCl 4 mg Q4HP PRN IV 03/12/25 16:45 Docusate Sodium 100 mg BIDPRN PRN PO 03/12/25 16:45 Enoxaparin Sodium 40 mg DAILY SC 03/13/25 10:00 03/16/25 11:03 40 MG Zinc Sulfate 220 mg DAILY PO 03/13/25 10:00 03/16/25 11:03 220 MG Ascorbic Acid 500 mg BID PO 03/12/25 22:00 03/16/25 11:06 500 MG Multivitamins 1 tab DAILY PO 03/13/25 10:00 03/16/25 11:03 1 TAB Acetaminophen 650 mg Q6HP PRN PO 03/12/25 16:45 03/12/25 22:37 650 MG Nitroglycerin 0.4 mg Q5MINP PRN SL 03/12/25 16:45 Hydralazine HCl 10 mg Q6HP PRN IV 03/13/25 00:15 03/14/25 10:03 10 MG Amlodipine Besylate 10 mg DAILY PO 03/13/25 10:00 03/16/25 11:05 10 MG Metoprolol Tartrate 50 mg DAILY PO 03/13/25 10:00 03/16/25 11:06 50 MG Levothyroxine Sodium 100 mcg QAM@0600 PO 03/13/25 06:00 03/16/25 05:32 100 MCG Oxycodone/ Acetaminophen 1 tab Q4HP PRN PO 03/14/25 13:15 03/16/25 00:20 1 TAB Vancomycin HCl 0 ml @ 0 mls/hr PER PHARMACY IV 03/15/25 12:30 Sodium Chloride 10 ml QSHIFT@10,22 IV 03/16/25 22:00 Sodium Chloride 1,000 ml @ 60 mls/hr [id number] IV 03/16/25 14:15 Ceftriaxone Sodium 50 ml @ 100 mls/hr DAILY@09 IV 03/17/25 09:00 laboratory and microbiology Laboratory Tests 03/16/25 06:18 Test 03/16/25 06:18 Range/Units Serum Glucose 117 H 74-106 mg/dL Problem List/Assessment/Plan Problem List/Assessment/Plan ASSESSMENT AND PLAN: ID Problem List: \-- Right foot cellulitis \-- Dry gangrene of right great toe and right fifth toe \-- Severe peripheral arterial disease (PAD) of right lower extremity \-- Hypertension \-- Hypothyroidism \-- History of pelvic inflammatory disease Assessment This is a 74-year-old female with a past medical history of hypertension, hypothyroidism, and pelvic inflammatory disease who presents with four days of right foot swelling and blackening of the right great and fifth toes. Exam notable for right foot edema and dry gangrenous changes of the involved toes without wet gangrene. CT of the right foot demonstrated generalized soft tissue edema without focal fluid collections or erosive changes; severe degenerative changes at the first MTP joint with complete joint space loss and osteophytes, with additional degenerative changes in the midfoot. Arterial duplex of the leg showed severe PAD. Blood cultures were obtained today and are pending. She reportedly underwent a reperfusion endarterectomy with intraoperative finding of 100% occlusion of the distal femoral and proximal femoral artery. There is leukocytosis and mildly elevated temperatures reported, without acute signs of severe sepsis. Overall, presentation is consistent with right foot cellulitis in the setting of severe PAD and dry gangrene of the right great and fifth toes, without imaging evidence of abscess or osteomyelitis. Plan: \-- Start IV vancomycin and IV ceftriaxone; planned duration approximately 14 days given cellulitis with leukocytosis and low concern for Pseudomonas in this scenario \-- Add oral metronidazole (Flagyl) for anaerobic coverage given mild odor reported \-- Antibiotic administration: IV therapy to continue via midline; vancomycin may be administered via PICC line for two weeks as noted \-- Blood cultures obtained today; follow for growth and adjust antibiotics per culture and sensitivity results \-- No evidence of localized abscess on CT; continue to monitor for development of collection or signs of wet gangrene \-- Podiatry: recommend follow-up for wound care and likely debridement as clinically indicated \-- Vascular surgery: defer to vascular surgery for outpatient monitoring and management of severe PAD status post reperfusion endarterectomy \-- Infectious Diseases: follow-up after the two-week antibiotic period to reassess need for additional antibiotics Isolation Precautions: Not specified in transcript. Plan is subject to change pending incorporation of new incoming information/diagnostics. Physical Exam: General: NAD Neck: Supple. No masses. HEENT: PERRL. Normal lids and conjunctiva. Moist mucous membranes. Oropharynx without lesions, exudates or excessive erythema. Normal appearance of the external aspects of the nose and ears. Heart: Regular rhythm, normal rate. No murmur. No lower extremity edema. Lungs: Normal respiratory effort. Clear to auscultation bilaterally. No wheezes. No crackles. Abdomen: Soft. Non-tender. Non-distended. No masses or abdominal hernia. Msk: No digital cyanosis. Normal strength and tone in all 4 limbs. Right foot edema present. Skin: Warm and dry, no rashes. Dry gangrene of the right great toe and right fifth toe. No purulent drainage. No wet gangrenous changes noted. Neuro: Alert. No facial droop or slurred speech. Extra-ocular movements intact. Sensation intact to soft touch in all 4 limbs. Psych: Appropriate mood. Full affect. Oriented to person, place, time, and situation. Plan discussed with: Patient Dietary Evaluation Review Comments: Nutrition Recommendation: 1) Eddie 1pk BID 2) Monitor PO intake, lab values, weight trend, and I/O Expected Outcomes/Goals: Wound to improve Fu 3-5 days SHANNON SENA MD Mar 16, 2025 15:04
[2025-03-16] MEDS: metroNIDAZOLE 500 MG TAB PO SCH (21:07)
[2025-03-16] MEDS: MORPHINE SULFATE INJ 2 MG/ml SYRG IV ONE (21:08)
[2025-03-16] MEDS: SODIUM CHLOR 0.9% PF (SALINE LOCK) 10ML VIAL/SYR IV SCH (21:17)
[2025-03-17] VITALS (9 sets, daily range): BP systolic 155–169; BP diastolic 58–81; PULSE 96–113; RESP 16–20; TEMP 98.1–98.6; O2SAT 93–100
[2025-03-17 05:56] LABS: Hematocrit 28.3 % (36.0-46.0); Hemoglobin 9.2 g/dL (12.2-16.2); Mean Corpuscular Hemoglobin 28.8 pg (28.0-32.0); Mean Corpuscular Volume 88.6 fL (80.0-100.0); Nucleated Red Blood Cells % 0.1 %
[2025-03-17 06:05] LABS: Chloride 106 mmol/L (98-107); Sodium 141 mmol/L (136-145)
[2025-03-17 06:06] LABS: Anion Gap 9 (5-15); Carbon Dioxide 26 mmol/L (20-31)
[2025-03-17 06:07] LABS: Calcium 8.9 mg/dL (8.7-10.4)
[2025-03-17 06:09] LABS: Potassium 3.4 mmol/L (3.5-5.1)
[2025-03-17 06:11] LABS: BUN/Creatinine Ratio 19.4 (10.0-20.0); Blood Urea Nitrogen 14 mg/dL (9-23)
[2025-03-17 06:12] LABS: Glucose 121 mg/dL (74-106)
[2025-03-17] MEDS: VANCOMYCIN 1.25GM/250ML 250 ML IV ONE (11:24)
--- NOTE | 2025-03-17 11:54 | DVHPN2 ---
Progress Note - Dictate Date Seen: Mar 17, 2025 Has the PT tested + for MRSA If YES, has PT been informed?: No Medical Necessity Reason Pt with a Central, PICC or Fol: No Subjective At present Patient is alert and awake knows her name that she is in the hospital. Her confusion has resolved. She wants to go home. However social Service still working on arranging home IV antibiotics. vital signs Vital Sign Date Time Temp Pulse Resp B/P (MAP) Pulse Ox O2 Delivery O2 Flow Rate FiO2 03/17/25 10:35 80 160/73 03/17/25 09:00 98.6 20 96 98.6 03/17/25 08:15 Room Air* 0 21 Total Intake and Output 03/16/25 03/16/25 03/17/25 15:00 23:00 07:00 Intake Total 300 ml 800 ml 1400 ml Output Total 900 ml 1050 ml Balance 300 ml -100 ml 350 ml medications Current Medications Medications Dose Ordered Sig/Cirilo Route Start Time Stop Time Status Last Admin Dose Admin Ondansetron HCl 4 mg Q4HP PRN IV 03/12/25 16:45 Docusate Sodium 100 mg BIDPRN PRN PO 03/12/25 16:45 Enoxaparin Sodium 40 mg DAILY SC 03/13/25 10:00 03/17/25 09:36 40 MG Zinc Sulfate 220 mg DAILY PO 03/13/25 10:00 03/17/25 09:34 220 MG Ascorbic Acid 500 mg BID PO 03/12/25 22:00 03/17/25 09:35 500 MG Multivitamins 1 tab DAILY PO 03/13/25 10:00 03/17/25 09:35 1 TAB Acetaminophen 650 mg Q6HP PRN PO 03/12/25 16:45 03/12/25 22:37 650 MG Nitroglycerin 0.4 mg Q5MINP PRN SL 03/12/25 16:45 Hydralazine HCl 10 mg Q6HP PRN IV 03/13/25 00:15 03/17/25 01:02 10 MG Amlodipine Besylate 10 mg DAILY PO 03/13/25 10:00 03/17/25 09:36 10 MG Metoprolol Tartrate 50 mg DAILY PO 03/13/25 10:00 03/17/25 09:35 50 MG Levothyroxine Sodium 100 mcg QAM@0600 PO 03/13/25 06:00 03/17/25 05:15 100 MCG Oxycodone/ Acetaminophen 1 tab Q4HP PRN PO 03/14/25 13:15 03/17/25 09:36 1 TAB Vancomycin HCl 0 ml @ 0 mls/hr PER PHARMACY IV 03/15/25 12:30 Sodium Chloride 10 ml QSHIFT@10,22 IV 03/16/25 22:00 03/17/25 09:34 10 ML Sodium Chloride 1,000 ml @ 60 mls/hr [id number] IV 03/16/25 14:15 03/16/25 14:15 60 MLS/HR Ceftriaxone Sodium 50 ml @ 100 mls/hr DAILY@09 IV 03/17/25 09:00 03/17/25 09:34 100 MLS/HR Metronidazole 500 mg Q8HR PO 03/16/25 22:00 03/17/25 05:16 500 MG objective Alert awake oriented to place and person. Sitting at the edge of bed. Not confused. HEENT neck supple no JVD pupils equal round react to light. Heart regular rate and rhythm S1-S2. Lungs fair air movement without rales wheezes. Abdomen soft nontender positive bowel sounds. Extremities no edema positive pulses. Foot has large toe black with the demarcation and no drainage or foul smell noted. laboratory and microbiology Laboratory Tests 03/17/25 05:31 Test 03/17/25 05:31 Range/Units Serum Glucose 121 H 74-106 mg/dL Assessment/Plan 1. Right great toe necrosis 2. Severe peripheral arterial disease bilateral lower extremity 3. Occlusion of the right superficial femoral, occlusion of the common femoral artery on the right side status post right superficial femoral artery endarterectomy has been as common femoral artery endarterectomy postop day 2 4. Extensive atherosclerosis of with a bilateral lower extremity arteries 5. Hypertension 6. Dyslipidemia 7. Hypothyroidism 8. Acute delirium with underlying early cognitive decline -patient is status post right superficial femoral artery endarterectomy has been as common femoral artery endarterectomy on right side, continue IV antibiotics -follow up vascular surgery, Infectious Disease recommendations. We will get a PICC line and arrange IV antibiotics. Continue current Rocephin vancomycin as she is on. 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 Apparently this arrangement own be able to take place during the weekend. Therefore she will be here till Wednesday and once home health with the antibiotics arranged discharge plan home on hopefully Wednesday. This is discussed with the patient and her nurse at bedside. Dietary Evaluation Review Comments: Nutrition Recommendation: 1) Eddie 1pk BID 2) Monitor PO intake, lab values, weight trend, and I/O Expected Outcomes/Goals: Wound to improve Fu 3-5 days Plan discussed with: Patient, Other ROCKY LUCIA MD Mar 17, 2025 11:54
--- NOTE | 2025-03-17 22:15 | DVHPN2 ---
Consult Progress Note Objective vital signs Vital Sign Date Time Temp Pulse Resp B/P (MAP) Pulse Ox O2 Delivery O2 Flow Rate FiO2 03/17/25 13:00 98.1 100 18 160/73 (102) 93 98.1 03/17/25 08:15 Room Air* 0 21 Total Intake and Output 03/16/25 03/16/25 03/17/25 15:00 23:00 07:00 Intake Total 300 ml 800 ml 1400 ml Output Total 900 ml 1050 ml Balance 300 ml -100 ml 350 ml medications Current Medications Medications Dose Ordered Sig/Cirilo Route Start Time Stop Time Status Last Admin Dose Admin Ondansetron HCl 4 mg Q4HP PRN IV 03/12/25 16:45 Docusate Sodium 100 mg BIDPRN PRN PO 03/12/25 16:45 Enoxaparin Sodium 40 mg DAILY SC 03/13/25 10:00 03/17/25 09:36 40 MG Zinc Sulfate 220 mg DAILY PO 03/13/25 10:00 03/17/25 09:34 220 MG Ascorbic Acid 500 mg BID PO 03/12/25 22:00 03/17/25 21:43 500 MG Multivitamins 1 tab DAILY PO 03/13/25 10:00 03/17/25 09:35 1 TAB Acetaminophen 650 mg Q6HP PRN PO 03/12/25 16:45 03/12/25 22:37 650 MG Nitroglycerin 0.4 mg Q5MINP PRN SL 03/12/25 16:45 Hydralazine HCl 10 mg Q6HP PRN IV 03/13/25 00:15 03/17/25 01:02 10 MG Amlodipine Besylate 10 mg DAILY PO 03/13/25 10:00 03/17/25 09:36 10 MG Metoprolol Tartrate 50 mg DAILY PO 03/13/25 10:00 03/17/25 09:35 50 MG Levothyroxine Sodium 100 mcg QAM@0600 PO 03/13/25 06:00 03/17/25 05:15 100 MCG Oxycodone/ Acetaminophen 1 tab Q4HP PRN PO 03/14/25 13:15 03/17/25 19:39 1 TAB Vancomycin HCl 0 ml @ 0 mls/hr PER PHARMACY IV 03/15/25 12:30 Sodium Chloride 10 ml QSHIFT@10,22 IV 03/16/25 22:00 03/17/25 21:43 10 ML Sodium Chloride 1,000 ml @ 60 mls/hr [id number] IV 03/16/25 14:15 03/16/25 14:15 60 MLS/HR Ceftriaxone Sodium 50 ml @ 100 mls/hr DAILY@09 IV 03/17/25 09:00 03/17/25 09:34 100 MLS/HR Metronidazole 500 mg Q8HR PO 03/16/25 22:00 03/17/25 21:43 500 MG laboratory and microbiology Laboratory Tests 03/17/25 05:31 Test 03/17/25 05:31 Range/Units Serum Glucose 121 H 74-106 mg/dL Problem List/Assessment/Plan Problem List/Assessment/Plan ASSESSMENT AND PLAN: ID Problem List: \-- Right foot cellulitis \-- Dry gangrene of right great toe and right fifth toe \-- Severe peripheral arterial disease (PAD) of right lower extremity \-- Hypertension \-- Hypothyroidism \-- History of pelvic inflammatory disease Assessment This is a 74-year-old female with a past medical history of hypertension, hypothyroidism, and pelvic inflammatory disease who presents with four days of right foot swelling and blackening of the right great and fifth toes. Exam notable for right foot edema and dry gangrenous changes of the involved toes without wet gangrene. CT of the right foot demonstrated generalized soft tissue edema without focal fluid collections or erosive changes; severe degenerative changes at the first MTP joint with complete joint space loss and osteophytes, with additional degenerative changes in the midfoot. Arterial duplex of the leg showed severe PAD. Blood cultures were obtained today and are pending. She reportedly underwent a reperfusion endarterectomy with intraoperative finding of 100% occlusion of the distal femoral and proximal femoral artery. There is leukocytosis and mildly elevated temperatures reported, without acute signs of severe sepsis. Overall, presentation is consistent with right foot cellulitis in the setting of severe PAD and dry gangrene of the right great and fifth toes, without imaging evidence of abscess or osteomyelitis. Plan: \-- Start IV vancomycin and IV ceftriaxone; planned duration approximately 14 days given cellulitis with leukocytosis and low concern for Pseudomonas in this scenario \-- Add oral metronidazole (Flagyl) for anaerobic coverage given mild odor reported \-- Antibiotic administration: IV therapy to continue via midline; vancomycin may be administered via PICC line for two weeks as noted \-- Blood cultures obtained today; follow for growth and adjust antibiotics per culture and sensitivity results \-- No evidence of localized abscess on CT; continue to monitor for development of collection or signs of wet gangrene \-- Podiatry: recommend follow-up for wound care and likely debridement as clinically indicated \-- Vascular surgery: defer to vascular surgery for outpatient monitoring and management of severe PAD status post reperfusion endarterectomy \-- Infectious Diseases: follow-up after the two-week antibiotic period to reassess need for additional antibiotics Isolation Precautions: Not specified in transcript. Plan is subject to change pending incorporation of new incoming information/diagnostics. Physical Exam: General: NAD Neck: Supple. No masses. HEENT: PERRL. Normal lids and conjunctiva. Moist mucous membranes. Oropharynx without lesions, exudates or excessive erythema. Normal appearance of the external aspects of the nose and ears. Heart: Regular rhythm, normal rate. No murmur. No lower extremity edema. Lungs: Normal respiratory effort. Clear to auscultation bilaterally. No wheezes. No crackles. Abdomen: Soft. Non-tender. Non-distended. No masses or abdominal hernia. Msk: No digital cyanosis. Normal strength and tone in all 4 limbs. Right foot edema present. Skin: Warm and dry, no rashes. Dry gangrene of the right great toe and right fifth toe. No purulent drainage. No wet gangrenous changes noted. Neuro: Alert. No facial droop or slurred speech. Extra-ocular movements intact. Sensation intact to soft touch in all 4 limbs. Psych: Appropriate mood. Full affect. Oriented to person, place, time, and situation. Dietary Evaluation Review Comments: Nutrition Recommendation: 1) Eddie 1pk BID 2) Monitor PO intake, lab values, weight trend, and I/O Expected Outcomes/Goals: Wound to improve Fu 3-5 days SHANNON SENA MD Mar 17, 2025 22:15
[2025-03-18 00:04] VITALS: BP 142/72; PULSE 106; RESP 20; TEMP 98.6; O2SAT 99
[2025-03-18] MEDS: LORazepam 2MG/ML-1ML VIAL IV PRN (04:16)
[2025-03-18] MEDS: LORazepam 2MG/ML-1ML VIAL ONE (05:03)
[2025-03-18 07:40] LABS: Hematocrit 28.1 % (36.0-46.0); Hemoglobin 9.1 g/dL (12.2-16.2); Mean Corpuscular Hemoglobin 28.7 pg (28.0-32.0); Mean Corpuscular Volume 88.6 fL (80.0-100.0); Nucleated Red Blood Cells % 0.1 %
[2025-03-18 08:00] VITALS: PULSE 98; RESP 18; O2SAT 100
[2025-03-18] MEDS ORDERED: VANCOMYCIN 1.25GM/250ML 250 ML IV ONE (11:45)
--- NOTE | 2025-03-18 13:18 | DVHPN2 ---
Progress Note - Dictate Date Seen: Mar 18, 2025 Has the PT tested + for MRSA If YES, has PT been informed?: No Medical Necessity Reason Pt with a Central, PICC or Fol: No Subjective Patient alert and awake sitting in the chair. Her family is at bedside. Pending arrangements for IV antibiotics for home. Per nurse patient's mentation is waxing and waning with some agitation. vital signs Vital Sign Date Time Temp Pulse Resp B/P (MAP) Pulse Ox O2 Delivery O2 Flow Rate FiO2 03/18/25 10:28 84 152/84 03/18/25 08:00 18 100 Room Air* 0 21 03/18/25 00:04 98.6 98.6 Total Intake and Output 03/17/25 03/17/25 03/18/25 15:00 23:00 07:00 Intake Total 300 ml 200 ml 500 ml Output Total 950 ml 1000 ml Balance 300 ml -750 ml -500 ml medications Current Medications Medications Dose Ordered Sig/Cirilo Route Start Time Stop Time Status Last Admin Dose Admin Ondansetron HCl 4 mg Q4HP PRN IV 03/12/25 16:45 Docusate Sodium 100 mg BIDPRN PRN PO 03/12/25 16:45 Enoxaparin Sodium 40 mg DAILY SC 03/13/25 10:00 03/18/25 09:22 40 MG Zinc Sulfate 220 mg DAILY PO 03/13/25 10:00 03/18/25 09:21 220 MG Ascorbic Acid 500 mg BID PO 03/12/25 22:00 03/18/25 09:21 500 MG Multivitamins 1 tab DAILY PO 03/13/25 10:00 03/18/25 09:21 1 TAB Acetaminophen 650 mg Q6HP PRN PO 03/12/25 16:45 03/18/25 10:57 650 MG Nitroglycerin 0.4 mg Q5MINP PRN SL 03/12/25 16:45 Hydralazine HCl 10 mg Q6HP PRN IV 03/13/25 00:15 03/17/25 01:02 10 MG Amlodipine Besylate 10 mg DAILY PO 03/13/25 10:00 03/18/25 09:27 10 MG Metoprolol Tartrate 50 mg DAILY PO 03/13/25 10:00 03/18/25 09:28 50 MG Levothyroxine Sodium 100 mcg QAM@0600 PO 03/13/25 06:00 03/17/25 05:15 100 MCG Oxycodone/ Acetaminophen 1 tab Q4HP PRN PO 03/14/25 13:15 03/18/25 01:19 1 TAB Vancomycin HCl 0 ml @ 0 mls/hr PER PHARMACY IV 03/15/25 12:30 Sodium Chloride 10 ml QSHIFT@10,22 IV 03/16/25 22:00 03/18/25 09:21 10 ML Sodium Chloride 1,000 ml @ 60 mls/hr [id number] IV 03/16/25 14:15 03/16/25 14:15 60 MLS/HR Ceftriaxone Sodium 50 ml @ 100 mls/hr DAILY@09 IV 03/17/25 09:00 03/18/25 09:21 100 MLS/HR Metronidazole 500 mg Q8HR PO 03/16/25 22:00 03/17/25 21:43 500 MG Lorazepam 0.5 mg Q8HP PRN IV 03/18/25 04:00 03/18/25 04:16 0.5 MG Vancomycin HCl 100 ml @ 100 mls/hr Q12H IV 03/18/25 12:00 Olanzapine 5 mg QPM PO 03/18/25 18:00 UNV objective Alert awake oriented to place and person. In the chair family at bedside. HEENT neck supple no JVD pupils equal round react to light. Heart regular rate and rhythm S1-S2. Lungs fair air movement without rales wheezes. Abdomen soft nontender positive bowel sounds. Extremities no edema positive pulses. laboratory and microbiology Laboratory Tests 03/18/25 07:07 03/17/25 05:31 Test 03/17/25 05:31 Range/Units Serum Glucose 121 H 74-106 mg/dL Assessment/Plan 1. Right great toe necrosis 2. Severe peripheral arterial disease bilateral lower extremity 3. Occlusion of the right superficial femoral, occlusion of the common femoral artery on the right side status post right superficial femoral artery endarterectomy has been as common femoral artery endarterectomy postop day 2 4. Extensive atherosclerosis of with a bilateral lower extremity arteries 5. Hypertension 6. Dyslipidemia 7. Hypothyroidism 8. Acute delirium with underlying early cognitive decline -patient is status post right superficial femoral artery endarterectomy has been as common femoral artery endarterectomy on right side, continue IV antibiotics -follow up vascular surgery, Infectious Disease recommendations. We will get a PICC line and arrange IV antibiotics. Continue current Rocephin vancomycin as she is on. I will add Zyprexa in the evening time for her agitation. Otherwise continue current care plan and discussed with the family/nurse at bedside. Manager Of Employee Relations involved and arranging home IV antibiotics with Rocephin and vanc for Infectious Disease recommendations. Apparently this arrangement own be able to take place during the weekend. Therefore she will be here till Wednesday and once home health with the antibiotics arranged discharge plan home on hopefully Wednesday. This is discussed with the patient and her nurse at bedside. Dietary Evaluation Review Comments: Nutrition Recommendation: 1) Eddie 1pk BID 2) Monitor PO intake, lab values, weight trend, and I/O Expected Outcomes/Goals: Wound to improve Fu 3-5 days Plan discussed with: Daughter TUTUBEBAUmangROCKY CLARK Mar 18, 2025 13:18
[2025-03-18] MEDS: VANCOMYCIN 750MG KIT 100 ML IV SCH (13:28)
[2025-03-18] MEDS: OLANZapine 5 MG TAB PO SCH (21:08)
[2025-03-18 22:00] VITALS: BP 169/81; PULSE 113; RESP 19; TEMP 98.4; O2SAT 100
[2025-03-19 01:00] VITALS: BP 194/75; PULSE 99; RESP 18; TEMP 97.4; O2SAT 100
[2025-03-19 05:00] VITALS: BP 176/78; PULSE 107; RESP 18; TEMP 97.5; O2SAT 98
[2025-03-19 09:00] VITALS: BP 143/53; PULSE 109; RESP 19; TEMP 98.1; O2SAT 97
[2025-03-19 13:00] VITALS: BP 134/59; PULSE 90; TEMP 98.5; O2SAT 98
[2025-03-19] MEDS ORDERED: NALO4SPR2 (13:04)
[2025-03-19] MEDS ORDERED: HYDR-4902 PO (13:04)
[2025-03-19] MEDS ORDERED: METR-344 PO (13:04)
[2025-03-19] MEDS ORDERED: SENN-62 PO (13:04)
--- NOTE | 2025-03-19 13:09 | DVHDS2 ---
Discharge Summary Date of Admission Mar 12, 2025 at 16:34 Date of Discharge: Mar 20, 2025 Labs/Diagnostic Data: Laboratory Results Test 03/19/25 04:47 03/18/25 07:07 03/17/25 05:31 03/15/25 05:21 Creatinine 0.68 mg/dL (0.550-1.02) Glomerular Filtration Rate Calc 92 mL/min (>90) White Blood Count 15.6 10^3/uL (4.4-10.8) Red Blood Count 3.17 10^6/uL (4.0-5.20) Hemoglobin 9.1 g/dL (12.2-16.2) Hematocrit 28.1 % (36.0-46.0) Mean Corpuscular Volume 88.6 fL (80.0-100.0) Mean Corpuscular Hemoglobin 28.7 pg (28.0-32.0) Mean Corpuscular Hemoglobin Concent 32.4 g/dL (32.0-36.0) Red Cell Distribution Width 15.0 % (11.8-14.3) Platelet Count 350 10^3/uL (140-450) Mean Platelet Volume 7.5 fL (6.9-10.8) Neutrophils (%) (Auto) 82.6 % (37.0-80.0) Lymphocytes (%) (Auto) 10.5 % (10.0-50.0) Monocytes (%) (Auto) 6.1 % (0.0-12.0) Eosinophils (%) (Auto) 0.3 % (0.0-7.0) Basophils (%) (Auto) 0.5 % (0.0-2.0) Neutrophils # (Auto) 12.9 10 ^3/uL (1.6-8.6) Lymphocytes # (Auto) 1.6 10 ^3/uL (0.4-5.4) Monocytes # (Auto) 0.9 10 ^3/uL (0-1.3) Eosinophils # (Auto) 0 10 ^3/uL (0-0.8) Basophils # (Auto) 0.1 10 ^3/uL (0-0.2) Nucleated Red Blood Cells 0.1 % Random Vancomycin Level 6.1 ug/mL (5-10) Sodium Level 141 mmol/L (136-145) Potassium Level 3.4 mmol/L (3.5-5.1) Chloride Level 106 mmol/L (98-107) Carbon Dioxide Level 26 mmol/L (20-31) Anion Gap 9 (5-15) Blood Urea Nitrogen 14 mg/dL (9-23) BUN/Creatinine Ratio 19.4 (10.0-20.0) Serum Glucose 121 mg/dL (74-106) Calcium Level 8.9 mg/dL (8.7-10.4) Urine Color Light-yellow (Yellow) Urine Clarity Clear (Clear) Urine pH 6.5 (5.0-9.0) Urine Specific [place] 1.017 (1.001-1.035) Urine Protein Negative (Negative) Urine Ketones Trace (Negative) Urine Blood Negative /uL (Negative) Urine Nitrite Negative (Negative) Urine Bilirubin Negative (Negative) Urine Urobilinogen Normal mg/dL (Negative) Urine Leukocyte Esterase Negative /uL (Negative) Urine RBC 2 /hpf (0 - 4) Urine Microscopic WBC 1 /HPF (0-5) Urine Squamous Epithelial Cells Few /hpf (<5) Urine Bacteria None seen /hpf (None Seen) Urine Glucose Normal mg/dL (Normal) Test 03/13/25 19:07 03/12/25 13:40 Prothrombin Time 11.3 sec (9.3-11.8) Prothrombin Time INR 1.07 (0.9-1.15) Lactic Acid Level 1.9 mmol/L (0.4-2.0) Other Laboratory Tests 03/19/25 04:47 03/18/25 07:07 03/17/25 05:31 Brief Hx & Hospital Course: 74-year-old female with past medical history of hypertension, hypothyroidism, PID presents with complaints of right foot swelling x4 days. Patient has also had blackening of the right great toe and right 5th toe. Also endorses the recent change to the right great toe within the last 4 days. During the emergency department evaluation W13.5, H&H 10.5/31.9, PLT 355, Na 143, K2.9, BUN 12, creatinine 0.70, GFR 92. CT of the right foot impression reads generalized soft tissue edema with no obvious focal fluid collections. No erosive changes. No interosseous soft tissue gas. Severe degenerative changes of the 1st MTP joint with complete joint space loss and osteophytes with more mild degenerative changes throughout the midfoot. No CT evidence for acute osteomyelitis. At this time patient denies fevers, chills, shortness of breath, dizziness, chest pain, palpitations, nausea, vomiting, She is admitted and evaluated by multiple consultants including vascular surgery Infectious Disease. Patient underwent revascularization of her severe peripheral arterial disease and had a PICC line/midline placed for few weeks of IV antibiotics per ID recommendations. Patient noted to have a dry gangrene of her toes and felt eventually these would fall off given the poor circulation. Meantime patient is advised to follow up with vascular surgery and Infectious Disease after two weeks. Patient apparently lives alone at home. Therefore son who is at bedside requested patient to go to long term facility for physical therapy and to finish IV antibiotics. I have talked with the son at bedside over the weekend as well as the day of discharge/today regarding patient's hospital diagnosis, treatment she received, procedure she had done, IV antibiotics including side effects, expected recovery and possible worsening of her toe gangrene. I also discussed with him the importance of close follow up with the vascular surgery Infectious Disease. Given overall patient is clinically stable in the hospital it is felt she can be safely discharged to a long term facility to finish the antibiotics and for physical therapy. Patient's son as well as patient verbalized understanding of my instructions, care plan and agree with the her going to long term facility. EXAM: CT HEAD WITHOUT CONTRAST INDICATION: Confusion. TECHNIQUE: CT of the head without intravenous contrast. Coronal and sagittal reformatted images are submitted. Radiation Dose : 1. Head: CT Dose: CTDI volume is 56.05 mGy. Dose-length product is 1.71 mGy*cm The dose indicators for CT are the volume Computed Tomography (CT) Dose Index (CTDIvol) and the Dose Length Product (DLP), and are measured in units of mGy and mGy-cm, respectively. These indicators are not patient dose, but values generated from the CT scanner acquisition factors. The report includes radiation exposure data for exposures received during this examination. All CT scans at this medical facility are performed using dose modulation techniques as appropriate to a performed exam including the following: Automated exposure control was utilized; adjustment of the MA and/or KV according to patient size; and use of iterative reconstruction technique. COMPARISON: None FINDINGS: There is no evidence of acute intracranial hemorrhage, extra-axial collection, mass effect, midline shift, herniation or hydrocephalus. There are periventricular and subcortical hypodensities, nonspecific, but likely reflecting sequelae of chronic microvascular ischemic changes. The ventricles, sulci and cisterns are age appropriate. The gomez-white differentiation is intact. The visualized paranasal sinuses and mastoid air cells are clear. No depressed calvarial fracture. The surrounding soft tissues are unremarkable. IMPRESSION: 1. No evidence of acute intracranial abnormality. Consults/Reason for consult Problem List/Assessment/Plan ASSESSMENT AND PLAN: ID Problem List: \\-- Right foot cellulitis \\-- Dry gangrene of right great toe and right fifth toe \\-- Severe peripheral arterial disease (PAD) of right lower extremity \\-- Hypertension \\-- Hypothyroidism \\-- History of pelvic inflammatory disease Assessment This is a 74-year-old female with a past medical history of hypertension, hypothyroidism, and pelvic inflammatory disease who presents with four days of right foot swelling and blackening of the right great and fifth toes. Exam notable for right foot edema and dry gangrenous changes of the involved toes without wet gangrene. CT of the right foot demonstrated generalized soft tissue edema without focal fluid collections or erosive changes; severe degenerative changes at the first MTP joint with complete joint space loss and osteophytes, with additional degenerative changes in the midfoot. Arterial duplex of the leg showed severe PAD. Blood cultures were obtained today and are pending. She reportedly underwent a reperfusion endarterectomy with intraoperative finding of 100% occlusion of the distal femoral and proximal femoral artery. There is leukocytosis and mildly elevated temperatures reported, without acute signs of severe sepsis. Overall, presentation is consistent with right foot cellulitis in the setting of severe PAD and dry gangrene of the right great and fifth toes, without imaging evidence of abscess or osteomyelitis. Plan: \\-- Start IV vancomycin and IV ceftriaxone; planned duration approximately 14 days given cellulitis with leukocytosis and low concern for Pseudomonas in this scenario \\-- Add oral metronidazole (Flagyl) for anaerobic coverage given mild odor reported \\-- Antibiotic administration: IV therapy to continue via midline; vancomycin may be administered via PICC line for two weeks as noted \\-- Blood cultures obtained today; follow for growth and adjust antibiotics per culture and sensitivity results \\-- No evidence of localized abscess on CT; continue to monitor for development of collection or signs of wet gangrene \\-- Podiatry: recommend follow-up for wound care and likely debridement as clinically indicated \\-- Vascular surgery: defer to vascular surgery for outpatient monitoring and management of severe PAD status post reperfusion endarterectomy \\-- Infectious Diseases: follow-up after the two-week antibiotic period to reassess need for additional antibiotics SHANNON SENA MD Mar 17, 2025 22:15 Operations or Procedures Operative Report - 2 Report Details Date: 03/14/25 Preop Diagnosis: RIGHT LEG CRITICAL LIMB ISCHEMIA Postop Diagnosis: right manager civil and sfa occlusion Surgeon: Tc Antonio MD Anesthesiologist: heather Anesthesia: General Consent: The patient was informed of the risks and benefits of the procedure. These include but are not limited to complications of anesthesia, postoperative infection, incomplete relief of symptoms, recurrence of symptoms, damage to blood vessels, nerves and tendons, deep venous thrombosis, pulmonary embolism and possible need for repeat surgery in the future. Complications: none Estimated Blood Loss: 200 ml Findings: 100% occlusion of distal common femoral and proximal superficial femoral artery Name of Procedure Performed right common femoral and superficial femoral artery endarterectomy Procedure Details Procedure Details: The patient was identified in the preop hold area. She was consented in preop by myself. She was brought back to the operating room placed the operating table in supine position after adequate induction of anesthesia antibiotics entire the right leg and groin and abdomen was prepped and draped in normal surgical fashion. A longitudinal incision was made above the common femoral artery and the right side Bovie cauterization was used dissecting down to the common femoral artery once the common femoral artery was encountered it was appeared to be occluded for short segment distal common femoral artery the common femoral artery was then isolated at the level of the inguinal ligament it was controlled with vessel loops at this point in time there was a pulse at that area. Distal to that however there was heavy plaque burden with no significant pulse noted dissection was then taken down to multiple branches that was preserved and vessel loops were placed around. The profunda was then isolated and controlled with vessel loops as well. The SFA was also controlled it was dissected out proximally 5 cm due to the artery being occluded and proximally 5 cm the artery became patent once again. At this point in time once all the branches in involved were controlled 5000 units of heparin was given to the patient. The vessels were then clamped and arteriotomy was made in the common femoral artery was extended down to the SFA proximally 5 cm. The occlusive plaque which was including the common femoral and SFA was removed in bulk. There was active backbleeding noted in the profunda once the vessels were unclamped there. The profunda was then flushed with heparinized saline. Dissection to remove any further plaque in the distal SFA was performed with backbleeding noted in the SFA as well. There was minimal bleeding in the external iliac artery a four Nora balloon was then used performing a thrombectomy of that area there was fresh clot noted which was removed then was pulsatile bleeding noted. The in some of the vessels were then flushed with heparinized saline there was no further plaque left behind and a bovine pericardial patch was used to sew to the opening to do a patch angioplasty six 0 Prolene suture was used for the anastomosis of the bovine pericardial patch to the common femoral and SFA. At the completion of the anastomosis all vessels were flushed prior to the suture being tied off. All vessel clamps were then removed flow was restored the patch did have one area of bleeding which was repair with a five 0 Prolene suture. The wound was then irrigated out well there was no further bleeding noted Doppler signals were noted in the SFA the profunda as well as the common femoral artery. The closure was begun with 3-0 Vicryl sutures of the deep layer followed by dermal layer of 3-0 Vicryl sutures followed by skin closure with renny. A sterile dressing was applied and the patient was taken in the PACU in a stable condition. Sponge and needle counts were correct. Family was made aware of all findings. Specimen: right manager civil and sfa plaque Condition Stable Condition at Discharge: Stable Final Diagnosis/Problems List 100% occlusion of distal common femoral and proximal superficial femoral artery, right common femoral and superficial femoral artery endarterectomy, hypertension, postop delirium/encephalopathy improved, hypertension, urinary retention status post Youssef placement, status post PICC line placement with IV antibiotics for necrotic toes Discharge Disposition: Nursing Home Facility Discharge Instruct/Medications Diet: Consistent carbohydrate, Cardiac 2g Na,low cholest Activity: No Restrictions, As Tolerated Follow Up/Referral: Dr. Antonio vascular surgery next week follow up vascular surgery Follow up with Urology Dr. Galo Orellana after 10 days for Youssef catheter removal and urinary retention evaluation primary care physician in 10 days for blood pressure management and confusion Medications: IV antibiotics via PICC line for Infectious Disease recommendations, other medications per discharge med reconciliation list Scheduled Amlodipine Besylate (Amlodipine Besylate), 10 MG PO DAILY, (Reported) Cetirizine Hcl (Kls Aller-Clarita), 1 TAB PO DAILY, (Reported) Clopidogrel Bisulfate (Plavix), 1 TAB PO DAILY, (Reported) Ergocalciferol (Vitamin D 63390 Unit), 50,000 UNIT PO QWEEKLY, (Reported) Levothyroxine Sodium (Synthroid Tablet), 1 TAB PO DAILY, (Reported) Lisinopril (Lisinopril), 40 MG PO DAILY, (Reported) Metoprolol Tartrate (Metoprolol Tartrate), 50 MG PO DAILY, (Reported) Metronidazole (Flagyl), 1 TAB PO TID Montelukast Sodium (Montelukast Sodium), 1 TAB PO DAILY, (Reported) Sennosides-Docusate Sodium (Senokot S), 1 TAB PO QPM Scheduled PRN Hydrocodone-Acetaminophen (Hydrocodone Bitartrate/AC 5-325 mg), 1 TAB PO Q6HPRN PRN Naloxone HCl (Narcan), 4 MG NA Q5MINP PRN Discontinued Medications Docusate Sodium (Colace), 1 CAP PO BID, (Reported) Montelukast Sodium (Singulair), 10 MG PO DAILY, (Reported) Discharge Statement: "Patient was advised to return to the ER or call 911 if any headaches, dizziness, shortness of breath, chest pain, abdominal pain, bleeding, fevers, or worsening of medical condition. Patient was counseled about treatment plan, medications, possible side effects, patientverbalized understanding. All questions were answered to the best of my ability. This discharge took greater then 30 minutes in planning, reviewing documentation, counseling the patient, and discussing with other team members." ASSESSMENT ASSESSMENT Assessment 100% occlusion of distal common femoral and proximal superficial femoral artery, right common femoral and superficial femoral artery endarterectomy, hypertension, postop delirium/encephalopathy improved, hypertension, urinary retention status post Youssef placement, status post PICC line placement with IV antibiotics for necrotic toes ROCKY LUCIA MD Mar 19, 2025 13:09
[2025-03-19 17:00] VITALS: BP 158/64; PULSE 92; RESP 19; TEMP 97.3; O2SAT 99
[2025-03-19 20:09] VITALS: BP 149/57; PULSE 81; RESP 17; TEMP 98.4; O2SAT 96
[2025-03-20] VITALS: BP 144/59; PULSE 89; RESP 17; TEMP 98.1; O2SAT 99
[2025-03-20 05:00] VITALS: BP 141/56; PULSE 82; RESP 18; TEMP 97.9; O2SAT 98
[2025-03-20 09:00] VITALS: BP 114/43; PULSE 64; RESP 20; O2SAT 98
[2025-03-20 13:00] VITALS: BP 130/61; PULSE 88; RESP 18; TEMP 97.7; O2SAT 98
[2025-03-20 17:00] VITALS: BP 142/70; PULSE 98; RESP 20; TEMP 99.3; O2SAT 97
[2025-03-20 21:00] VITALS: BP 143/68; PULSE 94; RESP 17; TEMP 99.4; O2SAT 99
--- NOTE | 2025-03-20 21:15 | DVHPN2 ---
Consult Progress Note Objective vital signs Vital Sign Date Time Temp Pulse Resp B/P (MAP) Pulse Ox O2 Delivery O2 Flow Rate FiO2 03/20/25 21:00 99.4 94 17 143/68 (93) 99 99.4 03/20/25 19:38 Room Air* 0 21 Total Intake and Output 03/19/25 03/19/25 03/20/25 15:00 23:00 07:00 Intake Total 150 ml 440 ml 425 ml Output Total 1200 ml 645 ml Balance 150 ml -760 ml -220 ml medications Current Medications Medications Dose Ordered Sig/Cirilo Route Start Time Stop Time Status Last Admin Dose Admin Ondansetron HCl 4 mg Q4HP PRN IV 03/12/25 16:45 Docusate Sodium 100 mg BIDPRN PRN PO 03/12/25 16:45 Enoxaparin Sodium 40 mg DAILY SC 03/13/25 10:00 03/20/25 08:08 40 MG Multivitamins 1 tab DAILY PO 03/13/25 10:00 03/20/25 08:08 1 TAB Acetaminophen 650 mg Q6HP PRN PO 03/12/25 16:45 03/20/25 16:30 650 MG Nitroglycerin 0.4 mg Q5MINP PRN SL 03/12/25 16:45 Hydralazine HCl 10 mg Q6HP PRN IV 03/13/25 00:15 03/19/25 07:38 10 MG Amlodipine Besylate 10 mg DAILY PO 03/13/25 10:00 03/20/25 08:10 10 MG Metoprolol Tartrate 50 mg DAILY PO 03/13/25 10:00 03/20/25 08:09 50 MG Levothyroxine Sodium 100 mcg QAM@0600 PO 03/13/25 06:00 03/20/25 05:45 100 MCG Sodium Chloride 10 ml QSHIFT@ IV 03/16/25 22:00 03/20/25 08:08 10 ML Ceftriaxone Sodium 50 ml @ 100 mls/hr DAILY@09 IV 03/17/25 09:00 03/20/25 08:08 100 MLS/HR Metronidazole 500 mg Q8HR PO 03/16/25 22:00 03/20/25 13:56 500 MG Lorazepam 0.5 mg Q8HP PRN IV 03/18/25 04:00 03/18/25 22:45 0.5 MG Linezolid 600 mg BID PO 03/20/25 22:00 laboratory and microbiology Laboratory Tests 03/20/25 06:20 03/18/25 07:07 03/17/25 05:31 Test 03/17/25 05:31 Range/Units Serum Glucose 121 H 74-106 mg/dL Problem List/Assessment/Plan Problem List/Assessment/Plan ASSESSMENT AND PLAN: ID Problem List: \-- Right foot cellulitis \-- Dry gangrene of right great toe and right fifth toe \-- Severe peripheral arterial disease (PAD) of right lower extremity \-- Hypertension \-- Hypothyroidism \-- History of pelvic inflammatory disease Assessment This is a 74-year-old female with a past medical history of hypertension, hypothyroidism, and pelvic inflammatory disease who presents with four days of right foot swelling and blackening of the right great and fifth toes. Exam notable for right foot edema and dry gangrenous changes of the involved toes without wet gangrene. CT of the right foot demonstrated generalized soft tissue edema without focal fluid collections or erosive changes; severe degenerative changes at the first MTP joint with complete joint space loss and osteophytes, with additional degenerative changes in the midfoot. Arterial duplex of the leg showed severe PAD. Blood cultures were obtained today and are pending. She reportedly underwent a reperfusion endarterectomy with intraoperative finding of 100% occlusion of the distal femoral and proximal femoral artery. There is leukocytosis and mildly elevated temperatures reported, without acute signs of severe sepsis. Overall, presentation is consistent with right foot cellulitis in the setting of severe PAD and dry gangrene of the right great and fifth toes, without imaging evidence of abscess or osteomyelitis. Plan: \-- Start IV vancomycin and IV ceftriaxone; planned duration approximately 14 days given cellulitis with leukocytosis and low concern for Pseudomonas in this scenario \-- Add oral metronidazole (Flagyl) for anaerobic coverage given mild odor reported \-- Antibiotic administration: IV therapy to continue via midline; vancomycin may be administered via PICC line for two weeks as noted \-- Blood cultures obtained today; follow for growth and adjust antibiotics per culture and sensitivity results \-- No evidence of localized abscess on CT; continue to monitor for development of collection or signs of wet gangrene \-- Podiatry: recommend follow-up for wound care and likely debridement as clinically indicated \-- Vascular surgery: defer to vascular surgery for outpatient monitoring and management of severe PAD status post reperfusion endarterectomy \-- Infectious Diseases: follow-up after the two-week antibiotic period to reassess need for additional antibiotics Isolation Precautions: Not specified in transcript. Plan is subject to change pending incorporation of new incoming information/diagnostics. Physical Exam: General: NAD Neck: Supple. No masses. HEENT: PERRL. Normal lids and conjunctiva. Moist mucous membranes. Oropharynx without lesions, exudates or excessive erythema. Normal appearance of the external aspects of the nose and ears. Heart: Regular rhythm, normal rate. No murmur. No lower extremity edema. Lungs: Normal respiratory effort. Clear to auscultation bilaterally. No wheezes. No crackles. Abdomen: Soft. Non-tender. Non-distended. No masses or abdominal hernia. Msk: No digital cyanosis. Normal strength and tone in all 4 limbs. Right foot edema present. Skin: Warm and dry, no rashes. Dry gangrene of the right great toe and right fifth toe. No purulent drainage. No wet gangrenous changes noted. Neuro: Alert. No facial droop or slurred speech. Extra-ocular movements intact. Sensation intact to soft touch in all 4 limbs. Psych: Appropriate mood. Full affect. Oriented to person, place, time, and situation. Dietary Evaluation Review Comments: Nutrition Recommendation: 1) Eddie 1pk BID 2) Monitor PO intake, lab values, weight trend, and I/O Expected Outcomes/Goals: Wound to improve Fu 3-5 days SHANNON SENA MD Mar 20, 2025 21:15
[2025-03-20] MEDS ORDERED: LINEZOLID 600MG TABLET PO SCH (22:00)
== END 2025-03-20 21:05 | DRG 271 ==
LOC: ER 12:05 → OVERFLOW 16:34 → TELE-EAST 21:44 → EAST 03-13 14:37 → CENTRAL 03-18 21:32
PROVIDERS: ADMIT Hospitalist; ATTEND Hospitalist
PROC: 04CK0ZZ Extirpation of Matter from Right Femoral Artery, Open Approach (ICD-10-PCS; 2025-03-14)
PROC: 04UK0KZ Supplement Right Femoral Artery with Nonautologous Tissue Substitute, Open Approach (ICD-10-PCS; 2025-03-14)
PROC: 04CH0ZZ Extirpation of Matter from Right External Iliac Artery, Open Approach (ICD-10-PCS; principal; 2025-03-14 10:26)
PROC: 02HV33Z Insertion of Infusion Device into Superior Vena Cava, Percutaneous Approach (ICD-10-PCS; 2025-03-16)
PROC: B548ZZA Ultrasonography of Superior Vena Cava, Guidance (ICD-10-PCS; 2025-03-16)
DX: I70.261 Atherosclerosis of native arteries of extremities with gangrene, right leg (principal); F05 Delirium due to known physiological condition; G93.40 Encephalopathy, unspecified; L03.115 Cellulitis of right lower limb; M86.8X7 Other osteomyelitis, ankle and foot; I10 Essential (primary) hypertension; E03.9 Hypothyroidism, unspecified; E87.6 Hypokalemia; E78.5 Hyperlipidemia, unspecified; R33.9 Retention of urine, unspecified; F17.200 Nicotine dependence, unspecified, uncomplicated
CPT/HCPCS: 36415; 36569; 70450; 73700; 75635; 76937; 80048; 80202; 81001; 82565; 83605; 85025; 85610; 87040; 93925; 96361; 96374; 97110; 97116; 97163; 97530; 99291; 99292; G0378; J2003; J2250; J2405; J2543; J2704; J3490

== ENCOUNTER 2025-04-23 06:17 | Inpatient (IN) | payer OTHER, MEDICAID ==
[~2025-04-23] VITALS: Ht 160 cm; Wt 56.6 kg
[2025-04-23] VITALS (11 sets, daily range): BP systolic 85–163; BP diastolic 40–75; PULSE 58–94; RESP 13–20; TEMP 97.6–98.3; O2SAT 94–99
[~2025-04-23 06:17] MED LIST changes: -AMOX500T86 PO; +ASPI81CH59 PO; +CETI10TA2 PO; -DOXY1CAP58 PO; +ERGO1CAP23 PO; -FLUC150T38 PO; +HYDR-4902 PO; -LEVO112T2 PO; +LOVA40TA72 PO; -METR-344 PO; +MONT-8 PO; -PHEN-922 PO; +QUET50TA PO; +SENN-62 PO; +TIZA4CAP7 PO; -[UNRECOGNIZED DRUG - CODE] PO
[2025-04-23] MEDS ORDERED: fentaNYL CITRATE 100 MCG/2 ML VL ONE (07:21)
[2025-04-23] MEDS ORDERED: MORPHINE SULF PF 5 MG/10 ML VIAL ONE (07:22)
[2025-04-23] MEDS ORDERED: MIDAZOLAM HCL 2MG/2ML 2ml VIAL (1mg/ml) ONE (07:22)
[2025-04-23] MEDS ORDERED: PROPOFOL 10 MG/ML 20 ML IV ONE (07:38)
[2025-04-23] MEDS: ceFAZolin 2 GM/D5W50ml 50 ML IV ONE (07:46)
[2025-04-23] MEDS ORDERED: NALOXONE HCL 0.4 MG/ML VIAL IV PRN (08:30)
[2025-04-23] MEDS ORDERED: hydrALAZINE HCL 20 MG/ML VL IV PRN (08:30)
[2025-04-23] MEDS ORDERED: HYDROmorphone HCL 2 MG/ML VL/or syr IV PRN (08:30)
[2025-04-23] MEDS ORDERED: ONDANSETRON HCL 4 MG/2 ML VIAL IV PRN (08:30)
[2025-04-23] MEDS ORDERED: MIDAZOLAM HCL 2MG/2ML 2ml VIAL (1mg/ml) IV PRN (08:30)
[2025-04-23] MEDS: LIDOCAINE 1% HCL (LOCAL ANESTH.) INJ 20ML MDV ONE ×2 (08:38→12:15)
[2025-04-23] MEDS: BUPIVACAINE HCL 0.25% P/F 10 ML VIAL ONE ×2 (08:38→12:14)
--- NOTE | 2025-04-23 09:37 | POSTOP ---
Post-Operative Note Post-Operative Note Preop Diagnosis Right foot gangrene Postop Diagnosis: same Operation performed Right below knee amputation Specimen right foot Anesthesia: Regional Anesthesiologist: Aarti Blood Loss(fluid mgmt) 50 ml Tourniquet Time no Surgeon Tc Antonio MD Date 04/23/25 Time 09:35 TC ANTONIO Jr., MD Apr 23, 2025 09:37
--- NOTE | 2025-04-23 09:40 | DVHOP2 ---
Operative Report - 2 Report Details Date: 04/23/25 Preop Diagnosis: Right foot gangrene Postop Diagnosis: same Surgeon: Tc Antonio MD Anesthesiologist: Aarti Anesthesia: Regional Consent: The patient was informed of the risks and benefits of the procedure. These include but are not limited to complications of anesthesia, postoperative infection, incomplete relief of symptoms, recurrence of symptoms, damage to blood vessels, nerves and tendons, deep venous thrombosis, pulmonary embolism and possible need for repeat surgery in the future. Estimated Blood Loss: 50 ml Indications for Surgery: right foot gangrene Name of Procedure Performed Right below knee amputation Procedure Details Procedure Details: Patient was identified in the preop hold area. She was consented and preopped by myself. She was brought back to the operating room placed the operating room table in supine position after adequate induction of anesthesia antibiotics and time-out the right leg was prepped and draped in normal surgical fashion. Standard below-knee amputation incision was made 10 cm below the tibial tuberosity dissection was taken down to the tibia posterior flaps were created on both sides. The anterior compartment was divided anterior tibial artery was ligated proximally and distally with silk sutures as well as hemoclips. The tibia was circumferentially controlled the fibula was also circumferentially controlled. The saphenous vein was divided and ligated with 2-0 silk sutures. The tibia was then divided with a bone saw the fibula was then divided proximally 1 cm more proximal with a bone saw. The posterior muscles were transected off of the posterior aspect of the tibia and fibula. The posterior flap was was kept intact and then divided distally. Specimen was sent off for pathology. The wound was then irrigated out all bleeding tissue was controlled with manual pressure and Bovie cauterization. At this point in time the posterior flap was then brought up and sewn to the pretibial fascia with 2-0 Vicryl sutures. The deep layers were then reapproximated with a 2-0 Vicryl sutures the dermal layer was then reapproximated with 2-0 Vicryl sutures. The skin was then reapproximated with renny. Dressings were applied sponge and needle counts were correct patient was taken to recovery room in stable condition. Specimen: right foot Condition Stable Disposition Still a Patient TC ANTONIO Jr., MD Apr 23, 2025 09:40
[2025-04-23] MEDS ORDERED: NITROGLYCERIN 0.4 MG SL TAB SL PRN (11:45)
[2025-04-23] MEDS ORDERED: MORPHINE SULFATE INJ 2 MG/ml SYRG IV PRN (11:45)
[2025-04-23] MEDS: TETRACAINE 1% INJ 2 ML VIAL IJ ONE (12:15)
[2025-04-23] MEDS: HYDROcodone-ACET 5/325MG TAB PO PRN (15:46)
--- NOTE | 2025-04-23 16:10 | DVHINCON2 ---
Date Seen: Apr 23, 2025 Referring Physician Vascular surgeon. Reason for Consultation Medical management. 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 Patient is currently denies any pain. Past Medical History Hypertension Dyslipidemia Hypothyroidism e Past Surgical History Status post right BKA. Family History: Patient reports no known family medical history. Allergies: Coded Allergies: Sulfa Antibiotics (Unverified Allergy, Intermediate, edema, 04/18/25) Atorvastatin (Unverified Adverse Reaction, Intermediate, edema, 04/18/25) Pravastatin (Unverified Adverse Reaction, Intermediate, edema, 04/18/25) Home Meds Active Scripts Sennosides-Docusate Sodium (Senokot S) 1 Tab Tab, 1 TAB PO QPM, #30 TAB Prov:ROCKY LUCIA MD 03/19/25 Hydrocodone-Acetaminophen (Hydrocodone Bitartrate/AC 5-325 mg) 1 Tab Tab, 1 TAB PO Q6HPRN PRN, #14 TAB Prov:ROCKY LUCIA MD 03/19/25 Reported Medications Lovastatin (Lovastatin) 40 Mg Tab, 40 MG PO DAILY, TAB 04/18/25 Aspirin (Aspirin Low Dose) 81 Mg Chw, 81 MG PO, TAB.CHEW 04/18/25 Quetiapine Fumerate (Seroquel) 50 Mg Tab, 50 MG PO, TAB 04/18/25 Tizanidine Hydrochloride (TIZANIDINE HCL) 4 Mg Cap, 4 MG PO PRN, CAP 04/18/25 Cetirizine Hcl (Kls Aller-Clarita) 10 Mg Tab, 1 TAB PO DAILY, #30 TAB 3 Refills 03/12/25 Montelukast Sodium (MONTELUKAST SODIUM) 10 Mg Tab, 1 TAB PO DAILY, #30 TAB 5 Refills 03/12/25 Ergocalciferol (VITAMIN D 71460 UNIT) 50,000 [place], [address] UNIT PO QWEEKLY, CAP 03/12/25 Levothyroxine Sodium (SYNTHROID TABLET) 100 Mcg Tb, 1 TAB PO DAILY, #30 TAB 5 Refills 11/24/22 Clopidogrel Bisulfate (Plavix) 75 Mg Tab, 1 TAB PO DAILY, % 11/24/22 Metoprolol Tartrate (Metoprolol Tartrate) 50 Mg Tab, 50 MG PO DAILY, MG 11/24/22 Lisinopril (Lisinopril) 40 Mg Tab, 40 MG PO DAILY, MG 11/24/22 Amlodipine Besylate (Amlodipine Besylate) 5 Mg Tab, 10 MG PO DAILY for 30 Days, MG 11/24/22 Current Medications Current Medications Medications (Trade) Dose Ordered Sig/Cirilo Route PRN Reason Start Time Stop Time Status Last Admin Ondansetron HCl (Zofran) 4 mg Q4HP PRN IV NAUSEA / VOMITING 04/23/25 08:30 Naloxone HCl (Narcan) 0.2 mg Q5M PRN IV For respirations < than 10/min 04/23/25 08:30 04/23/25 08:52 DC Hydromorphone HCl (Dilaudid Injection) 0.5 mg Q15M PRN IV SEVERE PAIN (7-10 PAIN SCALE) 04/23/25 08:30 04/23/25 09:01 DC Dexamethasone Sodium Phosphate (Decadron Injection) 10 mg GARBAGE PICK UP WORKER PRN IV FOR ITCHING 04/23/25 08:30 04/23/25 08:52 DC Hydralazine HCl (Apresoline Injection) 5 mg Q10M PRN IV SBP>160 04/23/25 08:30 04/23/25 09:21 DC Midazolam HCl (Versed Injection) 1 mg Q10M PRN IV ANXIETY 04/23/25 08:30 04/23/25 09:11 DC Ephedrine Sulfate (ePHEDrine SULFATE) 10 mg Q10M PRN IV SBP LESS THAN 90 04/23/25 08:30 04/23/25 09:11 DC Nitroglycerin (Ntrostat Sublingual) 0.4 mg Q5MINP PRN SL FOR CHEST PAIN 04/23/25 11:45 Morphine Sulfate 2 mg Q30M PRN IV FOR CHEST PAIN 04/23/25 11:45 Acetaminophen/ Hydrocodone Bitart ([place] 5/325MG Tab) 1 tab Q4HPRN PRN PO MODERATE PAIN (4-6 PAIN SCALE) 04/23/25 15:15 04/23/25 15:46 Review of Systems Twelve review of system are negative besides mentioned above. 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 Assessment 74-year-old female with a known history of hypertension, dyslipidemia, hypothyroidism, chronic tobacco use disorder presented to the hospital for elective procedure. 1. Hypertension controlled 2. Dyslipidemia 3. Hypothyroidism 4. Chronic tobacco use disorder nicotine cessation counseling has been discussed 5. Gangrenous right lower extremity status post right BKA. -pain meds as needed, DVT GI prophylaxis, discharge plan per vascular surgery. Plan discussed with: Patient Date of Service: Apr 23, 2025 Billing Provider: LEXI PHILLIPS MD Common Visit Codes: NOT BILLABLE LEXI PHILLIPS MD Apr 23, 2025 16:10
[2025-04-24] VITALS (8 sets, daily range): BP systolic 140–158; BP diastolic 58–75; PULSE 75–92; RESP 16–18; TEMP 97–98.1; O2SAT 94–100
--- NOTE | 2025-04-24 15:29 | DVHPN2 ---
Subjective Overnight events noted. Changes from previous H/P or p: No Changes Objective Vitals Vital Signs Date Time Temp Pulse Resp B/P (MAP) Pulse Ox O2 Delivery O2 Flow Rate FiO2 04/24/25 09:00 97.0 92 16 146/69 (94) 99 97.0 04/24/25 08:00 Room Air* 0 21 Intake/Output Intake and Output 04/24/25 07:00 Intake Total 950 ml Output Total 1050 ml Balance -100 ml Intake Oral 900 ml IV Total 50 ml Output Urine Total 1050 ml # Voids 1 # Bowel Movements 2 Exam HEENT pupils are reactive Neck is supple CV is S1-S2 regular rate and rhythm Diminished breath sounds bases GI positive bowel sound Extremity , right below-knee amputation. 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 patient's has a right below-knee amputation Medications Current Medications Medications Dose Ordered Sig/Cirilo Route Start Time Stop Time Status Last Admin Dose Admin Ondansetron HCl 4 mg Q4HP PRN IV 04/23/25 08:30 Nitroglycerin 0.4 mg Q5MINP PRN SL 04/23/25 11:45 Morphine Sulfate 2 mg Q30M PRN IV 04/23/25 11:45 Acetaminophen/ Hydrocodone Bitart 1 tab Q4HPRN PRN PO 04/23/25 15:15 04/24/25 10:25 1 TAB Assessment/Plan Assessment/Plan 74-year-old female with a known history of hypertension, dyslipidemia, hypot hyroidism, chronic tobacco use disorder presented to the hospital for elective procedure. 1. Hypertension controlled 2. Dyslipidemia 3. Hypothyroidism 4. Chronic tobacco use disorder nicotine cessation counseling has been discussed 5. Gangrenous right lower extremity status post right BKA. -pain meds as needed, DVT GI prophylaxis, discharge plan per vascular surgery. Plan discussed with: Patient Date of Service: Apr 24, 2025 Billing Provider: LEXI PHILLIPS MD Common Visit Codes: NOT BILLABLE LEXI PHILLIPS MD Apr 24, 2025 15:28
[2025-04-25 01:00] VITALS: BP 167/69; PULSE 83; RESP 18; TEMP 98.3; O2SAT 98
[2025-04-25 05:00] VITALS: BP 163/59; PULSE 84; RESP 19; TEMP 98.2; O2SAT 97
[2025-04-25 08:00] VITALS: PULSE 95; RESP 20
[2025-04-25] MEDS ORDERED: hydrALAZINE HCL 20 MG/ML VL IV PRN (08:30)
[2025-04-25 08:53] VITALS: BP 175/75; PULSE 101; RESP 21; TEMP 98.7; O2SAT 96
[2025-04-25 13:00] VITALS: BP 166/86; PULSE 84; RESP 18; TEMP 97.7; O2SAT 100
[2025-04-25] MEDS ORDERED: CEPH500C PO (16:24)
[2025-04-25] MEDS ORDERED: DOXY100C79 PO (16:24)
[2025-04-25] MEDS ORDERED: NALO4SPR2 (16:24)
[2025-04-25] MEDS ORDERED: HYDR-4902 PO (16:24)
--- NOTE | 2025-04-25 16:26 | DVHDS2 ---
Discharge Summary Date of Admission Apr 23, 2025 at 11:32 Date of Discharge: Apr 25, 2025 Brief Hx & Hospital Course: 74-year-old female with a known history of hypertension, dyslipidemia, hypothyroidism, chronic tobacco use disorder presented to the hospital for elective procedure. Patient underwent below-knee amputation for gangrenous right lower extremity. Patient's postoperatively did fairly well we will be discharged on p.o. antibiotics and pain pills as needed. Please follow up with the PCP as well as in 1-2 weeks. Nicotine cessation counseling has been discussed in detail patient is currently understand verbalized understanding and agreeable to plan. Condition at Discharge: Stable Final Diagnosis/Problems List 74-year-old female with a known history of hypertension, dyslipidemia, hypothyroidism, chronic tobacco use disorder presented to the hospital for elective procedure. 1. Hypertension controlled 2. Dyslipidemia 3. Hypothyroidism 4. Chronic tobacco use disorder nicotine cessation counseling has been discussed 5. Gangrenous right lower extremity status post right BKA. Discharge Disposition: Home with [facility] Discharge Will this Physician continue t: No Discharge Instruct/Medications Diet: Cardiac 2g Na,low cholest Activity: See Comment Activity comment: No driving, no signing legal documents, no playing on machinery while on narcotics Follow Up/Referral: Follow up with the PCP in 1-2 weeks Follow up with Dr. Greg howard as scheduled on wednesday. Medications: Medication as prescribed, new prescription New Medications: Cephalexin Monohydrate (Cephalexin) 500 Mg Cap 1 CAP PO TID for 7 Days, #21 CAP Doxycycline (Monohydrate) (Doxycycline) 100 Mg Cap 100 MG PO BID for 7 Days, #14 CAP Naloxone HCl (Narcan) 4 Mg/0.1 Ml Spr 4 MG NA PATIENT ACCOUNTS SPECIALIST, #2 SPRAY Continued Medications: Amlodipine Besylate (Amlodipine Besylate) 5 Mg Tab 10 MG PO DAILY for 30 Days, MG Aspirin (Aspirin Low Dose) 81 Mg Chw 81 MG PO, TAB.CHEW Cetirizine Hcl (Kls Aller-Clarita) 10 Mg Tab 1 TAB PO DAILY, #30 TAB 3 Refills Clopidogrel Bisulfate (Plavix) 75 Mg Tab 1 TAB PO DAILY, % Ergocalciferol (Vitamin D 44304 Unit) 50,[place] [address] UNIT PO QWEEKLY, CAP Hydrocodone-Acetaminophen (Hydrocodone Bitartrate/AC 5-325 mg) 1 Tab Tab 1 TAB PO Q6HPRN PRN, #14 TAB (This prescription has been renewed) Levothyroxine Sodium (Synthroid Tablet) 100 Mcg Tb 1 TAB PO DAILY, #30 TAB 5 Refills Lisinopril (Lisinopril) 40 Mg Tab 40 MG PO DAILY, MG Lovastatin (Lovastatin) 40 Mg Tab 40 MG PO DAILY, TAB Metoprolol Tartrate (Metoprolol Tartrate) 50 Mg Tab 50 MG PO DAILY, MG Montelukast Sodium (Montelukast Sodium) 10 Mg Tab 1 TAB PO DAILY, #30 TAB 5 Refills Quetiapine Fumerate (Seroquel) 50 Mg Tab 50 MG PO, TAB Sennosides-Docusate Sodium (Senokot S) 1 Tab Tab 1 TAB PO QPM, #30 TAB Tizanidine Hydrochloride (Tizanidine Hcl) 4 Mg Cap 4 MG PO PRN, CAP Scheduled Amlodipine Besylate (Amlodipine Besylate), 10 MG PO DAILY, (Reported) Cephalexin Monohydrate (Cephalexin), 1 CAP PO TID Cetirizine Hcl (Kls Aller-Clarita), 1 TAB PO DAILY, (Reported) Clopidogrel Bisulfate (Plavix), 1 TAB PO DAILY, (Reported) Doxycycline (Monohydrate) (Doxycycline), 100 MG PO BID Ergocalciferol (Vitamin D 55853 Unit), 50,000 UNIT PO QWEEKLY, (Reported) Levothyroxine Sodium (Synthroid Tablet), 1 TAB PO DAILY, (Reported) Lisinopril (Lisinopril), 40 MG PO DAILY, (Reported) Lovastatin (Lovastatin), 40 MG PO DAILY, (Reported) Metoprolol Tartrate (Metoprolol Tartrate), 50 MG PO DAILY, (Reported) Montelukast Sodium (Montelukast Sodium), 1 TAB PO DAILY, (Reported) Naloxone HCl (Narcan), 4 MG NA PATIENT ACCOUNTS SPECIALIST Sennosides-Docusate Sodium (Senokot S), 1 TAB PO QPM Tizanidine Hydrochloride (Tizanidine Hcl), 4 MG PO PRN, (Reported) Scheduled PRN Hydrocodone-Acetaminophen (Hydrocodone Bitartrate/AC 5-325 mg), 1 TAB PO Q6HPRN PRN Miscellaneous Medications Aspirin (Aspirin Low Dose), 81 MG PO, (Reported) Quetiapine Fumerate (Seroquel), 50 MG PO, (Reported) Discharge Statement: "Patient was advised to return to the ER or call 911 if any headaches, dizziness, shortness of breath, chest pain, abdominal pain, bleeding, fevers, or worsening of medical condition. Patient was counseled about treatment plan, medications, possible side effects, patientverbalized understanding. All questions were answered to the best of my ability. This discharge took greater then 30 minutes in planning, reviewing documentation, counseling the patient, and discussing with other team members." ASSESSMENT ASSESSMENT Assessment 74-year-old female with a known history of hypertension, dyslipidemia, hypothyroidism, chronic tobacco use disorder presented to the hospital for elective procedure. 1. Hypertension controlled 2. Dyslipidemia 3. Hypothyroidism 4. Chronic tobacco use disorder nicotine cessation counseling has been discussed 5. Gangrenous right lower extremity status post right BKA. Date of Service: Apr 25, 2025 Billing Provider: LEXI PHILLIPS MD Common Visit Codes: NOT BILLABLE LEXI PHILLIPS MD Apr 25, 2025 16:26
[2025-04-25 16:56] VITALS: BP 159/60; PULSE 86; RESP 18; TEMP 98; O2SAT 96
== END 2025-04-25 19:06 | disposition home or self-care (01) | DRG 241 ==
LOC: SUR 06:17 → OVERFLOW 11:32 → TELE-WESTW 12:05
PROVIDERS: ADMIT Internal Medicine; ATTEND Surgery Vascular Surgery
PROC: 0Y6F0ZZ Detachment at Right Knee Region, Open Approach (ICD-10-PCS; principal; 2025-04-23 07:46)
DX: I96 Gangrene, not elsewhere classified (principal); E03.9 Hypothyroidism, unspecified; I10 Essential (primary) hypertension; E78.5 Hyperlipidemia, unspecified; F17.200 Nicotine dependence, unspecified, uncomplicated; Z88.2 Allergy status to sulfonamides; Z79.82 Long term (current) use of aspirin; Z79.899 Other long term (current) drug therapy
CPT/HCPCS: G0378; J1100; J2003; J2250; J2704; J3490